=== PATIENT | female | born 1940 | race Caucasian/White ===

== ENCOUNTER 2019-06-23 22:16 | Inpatient (IN) | payer MEDICARE, MEDICAID ==
[2019-06-24] MEDS ORDERED: Morphine INJ* 2 MG/ML 1 ML SYRINGE (TWO MG - NEW SYRINGE VERSION) IV PRN ×2 (02:01→14:00)
[2019-06-24] MEDS ORDERED: hydrALAZINE IV* 20 MG/ML VIAL IV SLOW PU PRN (02:19)
[2019-06-24] MEDS: NS 0.9% 1000 ML** 1,000 ML IV SCH ×2 (02:28→14:56)
--- NOTE | 2019-06-24 03:59 | HP ---
HISTORY AND PHYSICAL: DATE OF ADMISSION: 06/24/19 CHIEF COMPLAINT: Fall with right hip pain. HISTORY OF PRESENT ILLNESS: This is a 79-year-old female with no past medical history other than some COPD, but currently not on any medication, was sent from [facility] after she was noted to have a right hip fracture. The patient was in her usual state of health up until 06/23/19 evening when she slipped on the linoleum floor in her kitchen, landing on her right hip with an instant pain. She was unable to stand up, so the grandson Rafael lifted her and put her in the couch, and later, he was able to bring her in the car and drive her to the [facility]. The patient was in severe pain ever since the fall. She denied any head trauma or any loss of consciousness, any dizziness prior to the fall, any chest pain, shortness of breath, abdominal pain, nausea, vomiting, or diarrhea. Her main complaint was the pain in the right hip. PAST MEDICAL HISTORY: She does have a history of COPD, but currently not on any medication. According to the MIKE Cotto at [facility], the patient has had chronic leukocytosis with her WBC always being in the 16,000 to 18,000 range in all her previous blood work at [facility]. PAST SURGICAL HISTORY: She has a history of exploratory laparotomy, unsure as to why it was done. She has also had total abdominal hysterectomy with bilateral salpingo-oophorectomy. HOME MEDICATIONS: Currently, does not take any medications. Was given some Aleve and Tylenol today after the fall. ALLERGIES: The patient is documented to be allergic to MERCURY, PENICILLIN, and SULFA ANTIBIOTICS which gives rash. FAMILY HISTORY: Given her age of 79, it is noncontributory. SOCIAL HISTORY: She quit smoking 20 years ago. Prior to that, used to smoke 1 to 2 cigarettes a day for 40 years. Denies any alcohol or drug use. Used to live independently, but recently moved in a few years ago at her grand kid's place. She has otherwise already signed a DNR and states that her family would be the surrogate decision maker. When asked to specify a name, she states her grandson Rafael would be able to make any decisions on her behalf. PHYSICAL EXAMINATION GENERAL: The patient is awake, alert, and oriented x3, did not appear to be in any acute respiratory distress. VITAL SIGNS: Temperature 98.9, BP 167/79, heart rate 82, respiration rate 16, saturating 96% on room air. HEAD AND NECK: Atraumatic, normocephalic. Extraocular movement intact. Oral mucosa was dry. Neck: Supple. No jugular venous distention. LUNGS: Clear to auscultation bilaterally. No wheezing, rhonchi, or rales. HEART: S1, S2. Regular rate and rhythm. ABDOMEN: Soft, nontender, nondistended. EXTREMITIES: The patient does have a shortened right lower extremity without any edema. DIAGNOSTIC STUDIES/LAB DATA: CBC shows elevated white count as mentioned at 18 ,000; hemoglobin shows hemoglobin of 11.8, minimally decreased; platelet count was noted to be 449. LFTs within normal limits. INR was noted to be 1.12. PTT was noted to be 39.2. Basic metabolic panel unremarkable. Random glucose was noted to be minimally elevated at 116. Hip images showed right hip fracture, documented as a subcapital fracture with elevation of the shaft with respect to femoral head, no subluxation. Left hip was showing no fracture. A 2-view x-ray was read as no acute disease. EKG showed sinus rhythm with voltage criteria for LVH, but this could be just because of the patient's body habitus being very skinny, no other ST elevations were noted. IMPRESSION: 1. This is a 79-year-old female with no significant past medical history except for some chronic leukocytosis, came in after sustaining a fall, noted to have right hip fracture. Ortho to be consulted. We will keep the patient n.p.o. for possible surgery. The patient otherwise does not have any risk factors for preop clearance such as any previous myocardial infarctions, stroke , high blood pressure, or diabetes, although the patient does have acutely elevated blood pressure. 2. Elevated blood pressure. Unclear if this is secondary to pain. We will start the patient on analgesics and also p.r.n. hydralazine and oral amlodipine to control the blood pressure. 3. DVT prophylaxis: To be started once the patient is evaluated for surgery. 4. Code status: The patient is a DNR and suggests her grandson Rafael being the healthcare proxy. [id number]/[facility] #: [id number] [facility]
[2019-06-24 07:14] LABS: ABS Lymphocytes 1.5 10^3/ul (1.0-4.8); ABS Monocytes 0.9 10^3/ul (0-0.8); ABS Neutrophils 8.7 10^3/ul (1.5-7.7); Eosinophil % 0.4 %; Hematocrit 30 % (35-47); Hemoglobin 10.1 g/dL (12.0-16.0); Lymphocyte % 13.4 %; Mean Corpuscular HGB Conc 34 g/dL (31-36); Mean Corpuscular Hemoglobin 29 pg (27-31); Mean Corpuscular Volume 87 fL (80-97); Mean Platelet Volume 7.9 fL (7.4-10.4); Platelet Count 357 10^3/uL (150-450); Red Blood Count 3.45 10^6 /uL (3.70-4.87); Red Cell Distribution Width 15 % (10-15); White Blood Count 11.2 10^3/uL (3.5-10.8)
[2019-06-24 07:17] LABS: BUN/Creatinine Ratio 20.3 (8-20); Calcium 8.6 mg/dL (8.6-10.3); EGFR African American 108.6 (>60); EGFR Non-African American 89.7 (>60); Potassium 3.4 mmol/L (3.5-5.0)
[2019-06-24 07:18] LABS: Activated Partial Thrombo Time 53.4 seconds (26.0-38.0); INR 1.28 (0.82-1.09)
[2019-06-24] MEDS ORDERED: Potassium Chlor TAB* 20 MEQ TAB.ER PO ONE (08:21)
--- NOTE | 2019-06-24 08:38 | PN ---
Progress Note - Progress Note Date of Service: 06/24/19 SOAP: Subjective: 79 yo female, h/o COPD asnd CLL, fell at home last night. Lives with her grandchildren. Initially brought to [place], transferred here for definitive management. Reports her hip hurts, but the pain medications have helped. Other than the right hip, no other complaints. Objective: Elderly female, sleeping in bed. Easily arousable. VSS: afebrile. HR, BPs good CV: S1/S2 Lungs: clear Right LE: shortened, but not particularly externally rotated. Being propped by pillows though. Motion not tested. Good sensation over FDWS and dorum foot. Can easily wiggle toes, slightly move ankle into plantar and dosriflexion X-rays: show a displaced right femoral neck fx Assessment: Displaced right femoral neck fx Plan: D/w patient a right hemiarthroplastty. Risks of surgery such as bleeding , considering her increased PT/INR, infection, scar formation, leg length discrepancy, instability, continued pain, DVT/PE and hardware failure, she wishes to proceed. Added on for a right hip hemiarthroplasty later this AM.
[2019-06-24] MEDS ORDERED: amLODIPine TAB* 5 MG PO SCH (09:00)
--- NOTE | 2019-06-24 09:39 | PN ---
Subjective Date of Service: 06/24/19 Interval History: Patient c/o right hip pain 10/10 at time of evaluation and is quite calm during history taking. She states when she receives morphine it does help. She explains she has felt cold but denies chills and fevers. Denies chest pain, difficulty breathing, abd pain, nausea. Objective Active Medications: Amlodipine Besylate (Norvasc Tab*) 5 mg PO DAILY [facility] Last Admin: 06/24/19 08:29 Dose: Not Given Hydralazine HCl (Apresoline Iv*) 5 mg IV SLOW PU Q6H PRN PRN Reason: Systolic Bp Greater Than:160 Sodium Chloride (Ns 0.9% 1000 Ml) 1,000 mls @ 75 mls/hr IV PER RATE [facility] Last Admin: 06/24/19 02:28 Dose: 75 mls/hr Morphine Sulfate (Morphine Inj (Syringe))*) 2 mg IV Q4H PRN PRN Reason: PAIN - MILD Last Admin: 06/24/19 02:37 Dose: 2 mg Vital Signs - 8 hr 06/24/19 06/24/19 06/24/19 02:37 03:38 03:47 Temperature 98.7 F Pulse Rate 76 Respiratory 16 16 16 Rate Blood Pressure 149/75 (mmHg) O2 Sat by Pulse 95 Oximetry 06/24/19 06/24/19 07:28 08:00 Temperature 99.2 F Pulse Rate 92 Respiratory 16 16 Rate Blood Pressure 145/68 (mmHg) O2 Sat by Pulse 94 Oximetry Oxygen Devices in Use Now: None Appearance: Thin, elderly white female, laying in bed, appearing comfortable and in NAD Eyes: No Scleral Icterus, - - PERRL Ears/Nose/Mouth/Throat: Mucous Membranes Moist Neck: - - neck supple Respiratory: Symmetrical Chest Expansion and Respiratory Effort, Clear to Auscultation Cardiovascular: NL Sounds; No Murmurs; No JVD, RRR Abdominal: - - abd soft, nontender, nondistended Extremities: No Edema, No Clubbing, Cyanosis, - - no calf tenderness Skin: No Rash or Ulcers Neurological: Alert and Oriented x 3, - - sensation grossly intact and equal in bilateral LEs; able to flex/extend all toes and bilaterally dorsiflex/ plantarflex Result Diagrams: 06/24/19 06:21 06/24/19 06:21 Assess/Plan/Problems-Billing Assessment: 79 yo white female with PMHx COPD not on therapy at home presents to the [facility] ED right right hip pain s/p mechanical fall, [place] [facility] found to have right hip fx. - Patient Problems (1) Hip fracture, right Current Visit: Yes Status: Acute Code(s): S72.001A - FRACTURE OF UNSP PART OF NECK OF RIGHT FEMUR, INIT SNOMED Code(s): 645573078 Comment: -displaced right femoral neck fx demonstrated on x-rays at [place] -Dr. Mccullough performed right hemiarthroplasty today. Appreciate ortho consult -continue pain mgmt, bowel regimen (2) Hypertension Current Visit: Yes Status: Acute Code(s): I10 - ESSENTIAL (PRIMARY) HYPERTENSION SNOMED Code(s): 67162347 Comment: -pt does not have pmhx HTN -possibly related to pain as it was present in ED and PACU postoperatively -did not receive amlodipine prior to surgery, will change to lisinopril and continue to monitor -continue prn hydralazine for SBP>180 (3) Hypokalemia Current Visit: Yes Status: Acute Code(s): E87.6 - HYPOKALEMIA SNOMED Code( s): 75294080 Comment: -likely 2/2 IVF due to NPO status for surgery -replacing and will repeat BMP (4) COPD (chronic obstructive pulmonary disease) Current Visit: Yes Status: Acute Code(s): J44.9 - CHRONIC OBSTRUCTIVE PULMONARY DISEASE, UNSPECIFIED SNOMED Code(s): 37080121 Comment: -no home meds -prn albuterol ordered (5) Full code status Current Visit: Yes Status: Acute Code(s): Z78.9 - OTHER SPECIFIED HEALTH STATUS SNOMED Code(s): 775275996 (6) DVT prophylaxis Current Visit: Yes Status: Acute Code(s): Z29.9 - ENCOUNTER FOR PROPHYLACTIC MEASURES, UNSPECIFIED SNOMED Code(s): 516234177 Comment: -lovenox per ortho
[2019-06-24] MEDS ORDERED: Albuterol HFA INHALER* 8 gm MDI INH PRN (09:40)
[2019-06-24] MEDS ORDERED: Senna TAB 8.6 mg* TAB PO PRN (09:41)
[2019-06-24] MEDS ORDERED: ceFAZolin 2 GM in NS PREMIX(*) 2 GM/100 ML BAG IVPB ONE (09:47)
[2019-06-24] MEDS ORDERED: Ondansetron INJ* 2 MG/ML VIAL ONE (10:48)
[2019-06-24] MEDS ORDERED: Propofol* 10 MG/ML 20 ML BTL ONE (10:48)
[2019-06-24] MEDS ORDERED: Lidocaine 2% PF * 5 ML VIAL ONE (10:48)
[2019-06-24] MEDS ORDERED: Dexamethasone IV* 4 MG/ML 1 ML (4 MG) ONE (10:48)
[2019-06-24] MEDS ORDERED: KETAMINE HCL* 50 MG/ML 10 ML VIAL ONE (10:49)
[2019-06-24] MEDS ORDERED: Cisatracurium* 2 MG/ML MDV 5 ML ONE (10:49)
[2019-06-24] MEDS ORDERED: Midazolam* 1 MG/ML 5 ML VIAL (5 MG) ONE (10:49)
[2019-06-24] MEDS ORDERED: fentaNYL* 50 MCG/ML 2 ML VIAL (100 MCG VIAL) ONE (10:49)
[2019-06-24] MEDS ORDERED: ROPIVACAINE 5 MG/ML 30 ML BTL (0.5%) ONE (11:09)
[2019-06-24] MEDS ORDERED: Bupivacaine 0.5%* 50 ML MDV VIAL ONE (11:32)
[2019-06-24] MEDS ORDERED: Lidocaine 1% w EPI 1:200,000* SDV 30 ML VIAL ONE (11:32)
[2019-06-24] MEDS ORDERED: Phenylephrine 40 MCG/ML SYRINGE ONE (12:01)
[2019-06-24] MEDS ORDERED: Ondansetron INJ* 2 MG/ML VIAL IV PRN (13:35)
[2019-06-24] MEDS: Polyethylene Glycol 3350* 17 GM PACKET PO SCH (14:57)
[2019-06-24] MEDS: Acetaminophen TAB* 325 MG PO PRN ×2 (14:58→21:11)
[2019-06-24] MEDS: Lisinopril TAB* 5 MG PO SCH (18:06)
[2019-06-24] MEDS: ceFAZolin 1 GM in Dextrose (*) 1 GM/50 ML BAG IVPB SCH (18:07)
[2019-06-24] MEDS: Docusate CAP* 100 MG PO SCH (21:08)
--- NOTE | 2019-06-24 21:56 | OP ---
OPERATIVE REPORT: DATE OF OPERATION: 06/24/19 DATE OF : 42 SURGEON: Xander Mccullough MD FLUE CLEANER: MIKE Abel ANESTHESIA: General endotracheal. PRE-OP DIAGNOSIS: Displaced right femoral neck fracture. POST-OP DIAGNOSIS: Displaced right femoral neck fracture. OPERATIVE PROCEDURE: Right hip hemiarthroplasty. INDICATIONS: Ms. Denson is a 79-year-old female who had fallen at home last night. She initially was brought to [place] and then transferred here in the early a.m. hours. She has a history of CLL and COPD, but otherwise had been declared healthy for surgery. I discussed with her that a right hip hemiarthroplasty should work well, so she could put weight on this right away and not have to convalesce while a fracture tries to heal. Risks of surgery such as infection, scar formation, stiffness, DVT, leg-length discrepancy, instability, hardware failure and continued pain were some of the risks discussed. She had wished to proceed. ESTIMATED BLOOD LOSS: 50 cc. COMPLICATIONS: None. HARDWARE: Forrest #6 M/L taper, reduced neck with standard offset, -3.5 mm, 28 mm femoral head, 44 mm bipolar head. DESCRIPTION OF PROCEDURE: The patient was brought to the OR and general endotracheal anesthesia was established. She was then rolled on to her left lateral decubitus position and an axillary roll was placed. Pegboard had been placed and the pegs were used to make sure she was safely secured to the table. Right hip area was prepped and then draped. Skin over the incisional area was infiltrated using a 50:50 mixture of 0.5% Marcaine mixed with 1% lidocaine with epinephrine. Incision was made, centered over the greater trochanter, extending distally for about 6 to 8 cm and proximally in a gentle curve for about 4 to 5 cm. It had been made so that when the hip was flexed up, incision would be in a straight line. Incision was carried down through the skin and thin subcutaneous tissues. Small bleeders encountered were ligated using electrocautery. Fascia was exposed and sharply incised. Short external rotators and abductors were immediately evident. Hohmann was placed under the abductors and nice exposure of the piriformis and back side of the hip was obtained. Electrocautery was used to take down the short external rotators and piriformis as well as open the capsule. Fracture was immediately evident. Guide was placed over the femur and the femoral neck was marked and then a cleanup cut was taken. Femur was then shifted anteriorly and fracture of the head was clearly evident. Corkscrew was placed and then used to leaver out the femoral head and the acetabulum was swept for additional loose bodies. Pulse lavage was also extensively used. Head slid perfectly through the 44 sizer and she was trialed with a 43, 44 and 45 size heads and I like the 44 the best. This corresponded well to pre-operative templating. Attention was turned to the proximal femur. Box osteotome was used to open the femoral canal and the canal finder was easily passed. 5 brokayla was seated and she was then trialed with a standard neck as well as with a minus head. She seemed a bit long as she was very tight in extension. Leg length lock, she seemed just about where she needed to be. When the head was removed, the 5 was however just a little bit loose. She was then trialed with a 6 and again I had the same concerns about her leg length. The 6, however, did seem to fit better, but sat a little bit proud. 5 broach was then used to countersink a little bit and then the 6 could be countersunk just a little bit more. An additional [address]. She was again trialed and at this time, the broach did not loosen and a 6 reduced neck standard offset stem was called for. This was then impacted into place. -3.5 mm 28 mm head was then impacted in and the bipolar cup assembly was assembled on the top side of the head. She was easily reduced and had excellent stability. I was still a little concerned about the tightness she had with extension, but considering the center of rotation it appeared to correspond well to the tip of the greater trochanter and that we are unable to place any shorter implants, this should work well for her. Hip was copiously pulse lavaged. 20 cc of local was injected on the superiorly and anteriorly about the hip as well. Posterior capsule and posterior short external rotators and piriformis were all repaired together to the posterior aspect of the greater trochanter. Hip was again pulse lavaged and fascia was repaired using interrupted #1 Vicryl sutures. Subcutaneous tissues were reapproximated with 2- 0 Vicryl. Skin was closed using franky. Sterile dressing was applied in the OR. The patient was rolled on to the hospital and extubated in the OR. She was then stable on transfer to the recovery room. [id number]/[facility] #: [id number] WILDA
[2019-06-25] MEDS: HYDROcodone/ACETAMIN 5-325 MG* 1 TAB PO PRN ×6 (00:16→21:42)
[2019-06-25] MEDS: ceFAZolin 1 GM in Dextrose (*) 1 GM/50 ML BAG IVPB SCH ×2 (01:08→10:21)
[2019-06-25 06:14] LABS: ABS Monocytes 1.2 10^3/ul (0-0.8); ABS Neutrophils 8.8 10^3/ul (1.5-7.7); Eosinophil % 0.3 %; Hematocrit 29 % (35-47); Hemoglobin 9.8 g/dL (12.0-16.0); Lymphocyte % 16.6 %; Mean Corpuscular HGB Conc 34 g/dL (31-36); Mean Corpuscular Hemoglobin 30 pg (27-31); Mean Corpuscular Volume 88 fL (80-97); Mean Platelet Volume 7.8 fL (7.4-10.4); Platelet Count 420 10^3/uL (150-450); Red Blood Count 3.31 10^6 /uL (3.70-4.87); Red Cell Distribution Width 15 % (10-15); White Blood Count 12.2 10^3/uL (3.5-10.8)
[2019-06-25 06:30] LABS: BUN/Creatinine Ratio 14.1 (8-20); Calcium 8.9 mg/dL (8.6-10.3); EGFR African American 86.4 (>60); EGFR Non-African American 71.4 (>60); Potassium 4.1 mmol/L (3.5-5.0)
[2019-06-25] MEDS: Docusate CAP* 100 MG PO SCH ×2 (08:14→21:42)
[2019-06-25] MEDS: Lisinopril TAB* 5 MG PO SCH (08:14)
[2019-06-25] MEDS: Polyethylene Glycol 3350* 17 GM PACKET PO SCH (08:15)
[2019-06-25] MEDS: Apixaban* 2.5 MG TAB PO SCH ×2 (08:15→21:42)
--- NOTE | 2019-06-25 08:22 | PN ---
Progress Note - Progress Note Date of Service: 06/25/19 SOAP: Subjective: OOB to chair, moderate right hip pain when up, controlled with current pain meds Objective: Vital Signs Temp Pulse Resp BP Pulse Ox 98.3 F 72 18 119/67 94 06/25/19 07:28 06/25/19 07:28 06/25/19 08:15 06/25/19 07:28 06/25/19 07:28 Laboratory Last Values WBC 12.2 10^3/uL (3.5-10.8) H 06/25/19 05:52 RBC 3.31 10^6 /uL (3.70-4.87) L 06/25/19 05:52 Hgb 9.8 g/dL (12.0-16.0) L 06/25/19 05:52 Hct 29 % (35-47) L 06/25/19 05:52 MCV 88 fL (80-97) 06/25/19 05:52 MCH 30 pg (27-31) 06/25/19 05:52 MCHC 34 g/dL (31-36) 06/25/19 05:52 RDW 15 % (10-15) 06/25/19 05:52 Plt Count 420 10^3/uL (150-450) 06/25/19 05:52 MPV 7.8 fL (7.4-10.4) 06/25/19 05:52 Neut % (Auto) 72.6 % 06/25/19 05:52 Lymph % (Auto) 16.6 % 06/25/19 05:52 Dundy % (Auto) 10.2 % 06/25/19 05:52 Eos % (Auto) 0.3 % 06/25/19 05:52 Baso % (Auto) 0.3 % 06/25/19 05:52 Absolute Neuts (auto) 8.8 10^3/ul (1.5-7.7) H 06/25/19 05:52 Absolute Lymphs (auto) 2.0 10^3/ul (1.0-4.8) 06/25/19 05:52 Absolute Monos (auto) 1.2 10^3/ul (0-0.8) H 06/25/19 05:52 Absolute Eos (auto) 0.0 10^3/ul (0-0.6) 06/25/19 05:52 Absolute Basos (auto) 0.0 10^3/ul (0-0.2) 06/25/19 05:52 Absolute Nucleated RBC 0.0 10^3/ul 06/25/19 05:52 Nucleated RBC % 0.0 06/25/19 05:52 INR (Anticoag Therapy) 1.28 (0.82-1.09) H 06/24/19 06:21 APTT 53.4 seconds (26.0-38.0) H 06/24/19 06:21 Sodium 135 mmol/L (135-145) 06/25/19 05:52 Potassium 4.1 mmol/L (3.5-5.0) 06/25/19 05:52 Chloride 105 mmol/L (101-111) 06/25/19 05:52 Carbon Dioxide 25 mmol/L (22-32) 06/25/19 05:52 Anion Gap 5 mmol/L (2-11) 06/25/19 05:52 BUN 11 mg/dL (6-24) 06/25/19 05:52 Creatinine 0.78 mg/dL (0.51-0.95) 06/25/19 05:52 Est GFR ( Amer) 86.4 (>60) 06/25/19 05:52 Est GFR (Non-Af Amer) 71.4 (>60) 06/25/19 05:52 BUN/Creatinine Ratio 14.1 (8-20) 06/25/19 05:52 Glucose 91 mg/dL (70-100) 06/25/19 05:52 Calcium 8.9 mg/dL (8.6-10.3) 06/25/19 05:52 Blood Type A Positive 06/24/19 06:19 Antibody Screen Negative 06/24/19 06:19 dressing c/d/i PE: able to DF/PF, 2+ DP pulse, intact sensation Assessment: s/p right hip magui; POD #1 Plan: 1) PT/OT- WBAT 2) Eliquis for DVT prophylaxis 3) Ancef for 24 hours post-op 4) May need rehab placement, will see how she progresses with PT
--- NOTE | 2019-06-25 17:37 | PN ---
Subjective Date of Service: 06/25/19 Interval History: Ms. Denson c/o R hip pain rated at 6/10. She has been up ambulating with walker, and notes that she did well, but it was painful. She had a BM 2 days ago. She denies new cough, CP, SOB, fever/chills, n/v/d. She has no other complaints today. Objective Active Medications: Acetaminophen (Tylenol Tab*) 650 mg PO Q4H PRN PRN Reason: PAIN - MILD Last Admin: 06/24/19 21:11 Dose: 650 mg Hydrocodone Bitart/Acetaminophen ([place] 5-325 Tab*) 2 tab PO Q4H PRN PRN Reason: PAIN - MODERATE Last Admin: 06/25/19 12:56 Dose: 2 tab Albuterol (Ventolin Hfa Inhaler*) 1 puff INH Q4H PRN PRN Reason: SOB/WHEEZING Apixaban (Eliquis*) 2.5 mg PO BID [facility] Last Admin: 06/25/19 08:15 Dose: 2.5 mg Docusate Sodium (Colace Cap*) 100 mg PO BID [facility] Last Admin: 06/25/19 08:14 Dose: 100 mg Hydralazine HCl (Apresoline Iv*) 5 mg IV SLOW PU Q6H PRN PRN Reason: Systolic Bp Greater Than:160 Last Admin: 06/24/19 15:02 Dose: 5 mg Sodium Chloride (Ns 0.9% 1000 Ml) 1,000 mls @ 75 mls/hr IV PER RATE [facility] Last Admin: 06/24/19 14:56 Dose: 75 mls/hr Lisinopril (Prinivil Tab*) 2.5 mg PO DAILY [facility] Last Admin: 06/25/19 08:14 Dose: 2.5 mg Morphine Sulfate (Morphine Inj (Syringe))*) 2 mg IV Q2H PRN PRN Reason: PAIN - SEVERE Ondansetron HCl (Zofran Inj*) 4 mg IV Q6H PRN PRN Reason: NAUSEA/VOMITING Polyethylene Glycol/Electrolytes (Miralax*) 17 gm PO DAILY [facility] Last Admin: 06/25/19 08:15 Dose: Not Given Senna (Senokot 8.6 Mg Tab*) 1 tab PO DAILY PRN PRN Reason: CONSTIPATION Vital Signs: Temp Pulse Resp BP Pulse Ox 98.3 F 82 16 107/54 94 06/25/19 12:00 06/25/19 12:00 06/25/19 17:27 06/25/19 12:00 06/25/19 16:00 Oxygen Devices in Use Now: None Appearance: Ms. Denson is an older white female who is sitting in chair with LE at floor. She appears mildly uncomfortable, but in no acute distress. Eyes: No Scleral Icterus, PERRLA Ears/Nose/Mouth/Throat: NL Teeth, Lips, Gums, Clear Oropharnyx, Mucous Membranes Moist Neck: NL Appearance and Movements; NL JVP, Trachea Midline Respiratory: Symmetrical Chest Expansion and Respiratory Effort, - - Decreased breath sounds throughout Cardiovascular: NL Sounds; No Murmurs; No JVD, RRR, No Edema Abdominal: NL Sounds; No Tenderness; No Distention, No Hepatosplenomegaly Extremities: No Edema, No Clubbing, Cyanosis Neurological: Alert and Oriented x 3 Result Diagrams: 06/25/19 05:52 06/25/19 05:52 Assess/Plan/Problems-Billing Assessment: 79 yo white female with PMHx COPD not on therapy at home presents to the [facility] ED right right hip pain s/p mechanical fall, then [place] [facility] found to have right hip fx. - Patient Problems (1) Hip fracture, right Comment: -displaced right femoral neck fx demonstrated on x-rays at [place] -Dr. Mccullough performed right hemiarthroplasty -appreciate ortho consult -continue pain mgmt, bowel regimen -PT/OT (2) Postoperative anemia Comment: -pt with anemia, likely due to post-op status -continue to monitor h/h (3) Hypertension Comment: -pt does not have pmhx HTN -possibly related to pain as it was present in ED and PACU postoperatively -did not receive amlodipine prior to surgery, will change to lisinopril and continue to monitor -BP under good control with lisinopril (4) Hypokalemia Comment: -likely 2/2 IVF due to NPO status for surgery -replaced and resolved -continue to monitor (5) COPD (chronic obstructive pulmonary disease) Comment: -no home meds -prn albuterol ordered (6) DVT prophylaxis Comment: -lovenox per ortho (7) Full code status Status and Disposition: Inpatient. Discharge when stable, home vs. [facility] to be determined.
[2019-06-25 22:22] LABS: Urine Appearance Cloudy; Urine Bacteria Absent (Absent); Urine Bilirubin Negative (Negative); Urine Blood Negative (Negative); Urine Color Yellow; Urine Glucose Negative (Negative); Urine Ketones Negative (Negative); Urine Nitrite Negative (Negative); Urine Protein Negative (Negative); Urine Red Blood Cell Absent (Absent); Urine Specific Gravity 1.021 (1.010-1.030); Urine Squamous Epithelial Cell Present (Absent); Urine Urobilinogen Negative (Negative); Urine White Blood Cell 1+(6-10/hpf) (Absent)
[2019-06-26] MEDS: HYDROcodone/ACETAMIN 5-325 MG* 1 TAB PO PRN ×5 (02:39→22:04)
[2019-06-26 06:47] LABS: ABS Basophils 0.1 10^3/ul (0-0.2); ABS Eosinophils 0.3 10^3/ul (0-0.6); ABS Lymphocytes 1.6 10^3/ul (1.0-4.8); ABS Neutrophils 8.7 10^3/ul (1.5-7.7); Eosinophil % 2.2 %; Hematocrit 31 % (35-47); Hemoglobin 10.2 g/dL (12.0-16.0); Mean Corpuscular HGB Conc 33 g/dL (31-36); Mean Corpuscular Hemoglobin 29 pg (27-31); Mean Corpuscular Volume 88 fL (80-97); Mean Platelet Volume 7.3 fL (7.4-10.4); Platelet Count 435 10^3/uL (150-450); Red Blood Count 3.47 10^6 /uL (3.70-4.87); Red Cell Distribution Width 15 % (10-15); White Blood Count 11.6 10^3/uL (3.5-10.8)
[2019-06-26 07:10] LABS: BUN/Creatinine Ratio 18.4 (8-20); EGFR African American 76.2 (>60); Potassium 4.5 mmol/L (3.5-5.0)
[2019-06-26] MEDS: Lisinopril TAB* 5 MG PO SCH (08:03)
[2019-06-26] MEDS: Apixaban* 2.5 MG TAB PO SCH ×2 (08:03→20:23)
[2019-06-26] MEDS: Docusate CAP* 100 MG PO SCH ×2 (08:07→20:23)
[2019-06-26] MEDS: Polyethylene Glycol 3350* 17 GM PACKET PO SCH (08:07)
[2019-06-26] MEDS ORDERED: Magnesium Hydroxide LIQ* 30 ML UDC PO PRN (09:45)
--- NOTE | 2019-06-26 10:40 | PN ---
Progress Note - Progress Note Date of Service: 06/26/19 SOAP: Subjective: []Pt seen at bedside. She feels well, hip pain is well controlled. She ambulate to the restroom yesterday with PT. Denies CP, SOB, dizziness, nausea. Objective: []Gen: NAD RLE: Right hip dressing changed, incision CDI no erythema and no discharge. Thigh is soft. DF/PF intact, DP2+, sensation intact to light touch distlaly calvrs supple and nontender Assessment: s/p right hip magui; POD #2 Plan: 1) PT/OT- WBAT. Posterior hip precautions 2) Eliquis 2.5 mg po BID x 30 days post op for DVT prophylaxis 3) Ancef for 24 hours post-op 4) May need rehab placement, will see how she progresses with PT Vital Signs Temp 98.4 F 06/26/19 07:42 Pulse 87 06/26/19 08:00 Resp 18 06/26/19 08:03 BP 142/79 06/26/19 07:42 Pulse Ox 94 06/26/19 08:00 Intake & Output 06/25/19 06/26/19 06/26/19 18:59 06:59 18:59 Intake Total 540 0 360 Output Total 300 505 100 Balance 240 -505 260 Intake: Oral 540 0 360 Output: Urine 300 505 100 Other: Estimated Void Large # Voids 1 Laboratory Last Values WBC 11.6 10^3/uL (3.5-10.8) H 06/26/19 06:41 RBC 3.47 10^6 /uL (3.70-4.87) L 06/26/19 06:41 Hgb 10.2 g/dL (12.0-16.0) L 06/26/19 06:41 Hct 31 % (35-47) L 06/26/19 06:41 MCV 88 fL (80-97) 06/26/19 06:41 MCH 29 pg (27-31) 06/26/19 06:41 MCHC 33 g/dL (31-36) 06/26/19 06:41 RDW 15 % (10-15) 06/26/19 06:41 Plt Count 435 10^3/uL (150-450) 06/26/19 06:41 MPV 7.3 fL (7.4-10.4) L 06/26/19 06:41 Neut % (Auto) 74.7 % 06/26/19 06:41 Lymph % (Auto) 14.0 % 06/26/19 06:41 Ware % (Auto) 8.4 % 06/26/19 06:41 Eos % (Auto) 2.2 % 06/26/19 06:41 Baso % (Auto) 0.7 % 06/26/19 06:41 Absolute Neuts (auto) 8.7 10^3/ul (1.5-7.7) H 06/26/19 06:41 Absolute Lymphs (auto) 1.6 10^3/ul (1.0-4.8) 06/26/19 06:41 Absolute Monos (auto) 1.0 10^3/ul (0-0.8) H 06/26/19 06:41 Absolute Eos (auto) 0.3 10^3/ul (0-0.6) 06/26/19 06:41 Absolute Basos (auto) 0.1 10^3/ul (0-0.2) 06/26/19 06:41 Absolute Nucleated RBC 0.0 10^3/ul 06/26/19 06:41 Nucleated RBC % 0.0 06/26/19 06:41 INR (Anticoag Therapy) 1.28 (0.82-1.09) H 06/24/19 06:21 APTT 53.4 seconds (26.0-38.0) H 06/24/19 06:21 Sodium 137 mmol/L (135-145) 06/26/19 06:41 Potassium 4.5 mmol/L (3.5-5.0) 06/26/19 06:41 Chloride 106 mmol/L (101-111) 06/26/19 06:41 Carbon Dioxide 27 mmol/L (22-32) 06/26/19 06:41 Anion Gap 4 mmol/L (2-11) 06/26/19 06:41 BUN 16 mg/dL (6-24) 06/26/19 06:41 Creatinine 0.87 mg/dL (0.51-0.95) 06/26/19 06:41 Est GFR ( Amer) 76.2 (>60) 06/26/19 06:41 Est GFR (Non-Af Amer) 63.0 (>60) 06/26/19 06:41 BUN/Creatinine Ratio 18.4 (8-20) 06/26/19 06:41 Glucose 80 mg/dL (70-100) 06/26/19 06:41 Calcium 9.0 mg/dL (8.6-10.3) 06/26/19 06:41 Urine Color Yellow 06/25/19 21:41 Urine Appearance Cloudy 06/25/19 21:41 Urine pH 5.0 (5-9) 06/25/19 21:41 Ur Specific [place] 1.021 (1.010-1.030) 06/25/19 21:41 Urine Protein Negative (Negative) 06/25/19 21:41 Urine Ketones Negative (Negative) 06/25/19 21:41 Urine Blood Negative (Negative) 06/25/19 21:41 Urine Nitrate Negative (Negative) 06/25/19 21:41 Urine Bilirubin Negative (Negative) 06/25/19 21:41 Urine Urobilinogen Negative (Negative) 06/25/19 21:41 Ur Leukocyte Esterase Trace (Negative) A 06/25/19 21:41 Urine WBC (Auto) 1+(6-10/hpf) (Absent) A 06/25/19 21:41 Urine RBC (Auto) Absent (Absent) 06/25/19 21:41 Ur Squamous Epith Cells Present (Absent) A 06/25/19 21:41 Urine Bacteria Absent (Absent) 06/25/19 21:41 Urine Glucose Negative (Negative) 06/25/19 21:41 Blood Type A Positive 06/24/19 06:19 Antibody Screen Negative 06/24/19 06:19
--- NOTE | 2019-06-26 17:24 | PN ---
Subjective Date of Service: 06/26/19 Interval History: Ms. Denson continues to have R hip pain that she rates at 6/10 currently. She notes it is worse with ambulation, and she has just returned from the bathroom recently. She reports last BM 06/23. She has no other complaints today. Objective Active Medications: Acetaminophen (Tylenol Tab*) 650 mg PO Q4H PRN PRN Reason: PAIN - MILD Last Admin: 06/24/19 21:11 Dose: 650 mg Hydrocodone Bitart/Acetaminophen ([place] 5-325 Tab*) 2 tab PO Q4H PRN PRN Reason: PAIN - MODERATE Last Admin: 06/26/19 12:01 Dose: 2 tab Albuterol (Ventolin Hfa Inhaler*) 1 puff INH Q4H PRN PRN Reason: SOB/WHEEZING Apixaban (Eliquis*) 2.5 mg PO BID [facility] Last Admin: 06/26/19 08:03 Dose: 2.5 mg Docusate Sodium (Colace Cap*) 100 mg PO BID [facility] Last Admin: 06/26/19 08:07 Dose: Not Given Hydralazine HCl (Apresoline Iv*) 5 mg IV SLOW PU Q6H PRN PRN Reason: Systolic Bp Greater Than:160 Last Admin: 06/24/19 15:02 Dose: 5 mg Sodium Chloride (Ns 0.9% 1000 Ml) 1,000 mls @ 75 mls/hr IV PER RATE [facility] Last Admin: 06/24/19 14:56 Dose: 75 mls/hr Lisinopril (Prinivil Tab*) 2.5 mg PO DAILY [facility] Last Admin: 06/26/19 08:03 Dose: 2.5 mg Magnesium Hydroxide (Milk Of Magnesia Liq*) 30 ml PO BID PRN PRN Reason: CONSTIPATION Morphine Sulfate (Morphine Inj (Syringe))*) 2 mg IV Q2H PRN PRN Reason: PAIN - SEVERE Ondansetron HCl (Zofran Inj*) 4 mg IV Q6H PRN PRN Reason: NAUSEA/VOMITING Polyethylene Glycol/Electrolytes (Miralax*) 17 gm PO DAILY [facility] Last Admin: 06/26/19 08:07 Dose: Not Given Senna (Senokot 8.6 Mg Tab*) 1 tab PO DAILY PRN PRN Reason: CONSTIPATION Vital Signs: Temp Pulse Resp BP Pulse Ox 98.0 F 95 18 131/74 99 06/26/19 15:20 06/26/19 15:20 06/26/19 15:20 06/26/19 15:20 06/26/19 16:00 Oxygen Devices in Use Now: None Appearance: Ms. Denson is an older white female who appears older than stated age; she is sitting up in chair with LE elevated. She appears to be in no acute distress, but is midly uncomfortable. Eyes: No Scleral Icterus, PERRLA Ears/Nose/Mouth/Throat: NL Teeth, Lips, Gums, Clear Oropharnyx, Mucous Membranes Moist Neck: NL Appearance and Movements; NL JVP, Trachea Midline Respiratory: Symmetrical Chest Expansion and Respiratory Effort, - - Scattered faint, intermittent wheezing; decreased air exchange Cardiovascular: NL Sounds; No Murmurs; No JVD, RRR, No Edema Abdominal: NL Sounds; No Tenderness; No Distention, No Hepatosplenomegaly Extremities: No Edema, No Clubbing, Cyanosis, - - R hip with CDI dressing in place; able to move all extremities Neurological: Alert and Oriented x 3, NL Sensation Result Diagrams: 06/26/19 06:41 06/26/19 06:41 Microbiology and Other Data: Microbiology 06/25/19 21:41 Urine Culture - Final Urine No Growth (<1,000 CFU/mL) Assess/Plan/Problems-Billing Assessment: 79 yo white female with PMHx COPD not on therapy at home presents to the [facility] ED right right hip pain s/p mechanical fall, then transferred to [facility] when found to have right hip fx. - Patient Problems (1) Hip fracture, right Comment: -displaced right femoral neck fx demonstrated on x-rays at [facility] -Dr. Mccullough performed right hemiarthroplasty 06/24 -appreciate ortho consult -continue pain mgmt, bowel regimen -PT/OT (2) Postoperative anemia Comment: -pt with anemia, likely due to post-op status -trending up -continue to monitor h/h (3) Hypertension Comment: -BP well controlled -no PMHx HTN -possibly related to pain as it was present in ED and PACU postoperatively -BP under good control with lisinopril (4) COPD (chronic obstructive pulmonary disease) Comment: -very mild wheezing on exam; does not appear to be in exacerbation -no home meds -prn albuterol ordered (5) DVT prophylaxis Comment: -Eliquis 2.5 PO BID per ortho (6) Full code status Status and Disposition: Inpatient. Discharge when stable, home vs. [facility] to be determined.
[2019-06-27] MEDS: HYDROcodone/ACETAMIN 5-325 MG* 1 TAB PO PRN (05:01)
[2019-06-27 06:16] LABS: ABS Basophils 0.1 10^3/ul (0-0.2); ABS Eosinophils 0.3 10^3/ul (0-0.6); ABS Lymphocytes 1.5 10^3/ul (1.0-4.8); ABS Monocytes 0.9 10^3/ul (0-0.8); ABS Neutrophils 8.8 10^3/ul (1.5-7.7); Eosinophil % 2.6 %; Hematocrit 31 % (35-47); Hemoglobin 10.3 g/dL (12.0-16.0); Lymphocyte % 12.6 %; Mean Corpuscular HGB Conc 33 g/dL (31-36); Mean Corpuscular Hemoglobin 29 pg (27-31); Mean Corpuscular Volume 88 fL (80-97); Mean Platelet Volume 7.9 fL (7.4-10.4); Platelet Count 463 10^3/uL (150-450); Red Blood Count 3.56 10^6 /uL (3.70-4.87); Red Cell Distribution Width 15 % (10-15); White Blood Count 11.6 10^3/uL (3.5-10.8)
[2019-06-27 06:39] LABS: BUN/Creatinine Ratio 21.6 (8-20); Calcium 9.1 mg/dL (8.6-10.3); EGFR African American 91.8 (>60); EGFR Non-African American 75.9 (>60); Potassium 4.5 mmol/L (3.5-5.0)
[2019-06-27 07:51] VITALS: BP 116/63
[2019-06-27] MEDS: Lisinopril TAB* 5 MG PO SCH (08:24)
[2019-06-27] MEDS: Docusate CAP* 100 MG PO SCH (08:25)
[2019-06-27] MEDS: Apixaban* 2.5 MG TAB PO SCH (08:25)
[2019-06-27] MEDS: Polyethylene Glycol 3350* 17 GM PACKET PO SCH (09:37)
--- NOTE | 2019-06-27 10:53 | DS ---
DATE OF ADMISSION: 06/24/2019. DATE OF DISCHARGE: 06/27/2019. PRIMARY CARE PHYSICIAN: None; please establish with [facility] prior to discharge. OTHER PROVIDER: Dr. Xander Mccullough. ATTENDING PHYSICIAN: Dr. Any Canada * (dictated by MIKE Raymond). PRIMARY DIAGNOSES: 1. Right femur fracture, status post right hemiarthroplasty. 2. Postoperative anemia. 3. Hypertension. 4. Hypokalemia. SECONDARY DIAGNOSES: 1. COPD, not on home medications. 2. History of chronic leukocytosis. CONSULTATIONS WHILE IN THE HOSPITAL: Orthopedic consultation: Plan: Discuss with patient a right hemiarthroplasty; risks of surgery such as bleeding, considering her increased PT/INR, infection, scar formation, leg length discrepancy, instability, continued pain, DVT/PE, and hardware failure, she wishes to proceed. Added on for a right hip hemiarthroplasty later this a.m. STUDIES WHILE IN THE HOSPITAL: Pelvis x-ray: Report and impression: Right hip bipolar hemiprosthesis in place with normal alignment in the AP projection. No periprosthetic fracture evident within limits of AP exam. Overlying soft tissue edema, subcutaneous emphysema, and cutaneous franky. HOME MEDICATIONS: None. DISCHARGE MEDICATIONS: 1. Acetaminophen 650 mg p.o. q.4 hours prn. 2. Albuterol HFA inhaler one puff inhalation q.4 hours prn. 3. Apixaban 2.5 mg p.o. b.i.d. times 30 days postop. 4. Docusate 100 mg p.o. b.i.d. prn. 5. Hydrocodone/acetaminophen 5/325 one to two tabs p.o. q.4 hours prn pain. 6. Lisinopril 2.5 mg p.o. daily. 7. Magnesium Hydroxide 30 ml p.o. b.i.d. prn. 8. Polyethylene Glycol 17 gm p.o. daily prn. 9. Senna one tab p.o. daily prn. HISTORY OF PRESENT ILLNESS/HOSPITAL COURSE: Ms. Denson is a 79-year-old female with a past medical history of COPD, not on medications who presented to [facility] on June 24 and was noted to have a right femur fracture, status post mechanical fall. For full and complete details, please see the history and physical dictated by Dr. Jarrod Choudhury. In short, the patient presented to [place] with these symptoms. She was transferred to [facility]. Orthopedics was consulted. The patient was offered a right hip hemiarthroplasty which she accepted. This was performed on 06/24/2019. Throughout her stay she worked with Physical Therapy who recommended subacute rehab. [facility] has accepted the patient for admission and she will be transferred to [facility] today. At admission, the patient was noted to be hypertensive. She does not have an outpatient diagnosis of hypertension. She was started on low dose Lisinopril 2.5 mg p.o. daily which has adequately controlled her blood pressure. She will be continued on this medication as an outpatient. The patient was noted to have mild hypokalemia during hospitalization. This was likely from IV fluids. This was repleted and her potassium was within normal limits throughout the rest of her stay. The patient was also noted to have some mild anemia throughout her stay. This was likely partially due to perioperative blood loss. The patient's hemoglobin and hematocrit are trending upward at discharge. Recommendations are to repeat a CBC and BMP in approximately one week to ensure that these continue to rise. Recommend anemia work-up if H and H remains low. The patient was also noted to have a mild leukocytosis throughout her stay. Reports from [place] state that the patient has chronic leukocytosis with white blood cells ranging from 16,000 to 18,000 in all previous blood work from [place]. She does not have a primary care provider, therefore she should have an appointment scheduled with [facility] at discharge. Recommendations are to have follow-up lab work addressed by her new primary care provider. At the time of discharge, the patient continues to have 7/10 pain in the right hip. She notes that pain has worsened when she is up and walking, and she recently returned from the bathroom causing an increase in pain. She denies dizziness, lightheadedness, loss of consciousness, shortness of breath. She denies cough, fever, chills, nausea, vomiting, diarrhea, abdominal pain, dysuria , frequency, urgency, retention. She has not had a bowel movement in approximately four days, but denies abdominal pain. REVIEW OF SYMPTOMS: A 14 point review of systems has been performed and all the pertinent positives and negatives are in the HPI. All other systems are negative. PHYSICAL EXAMINATION: General: Ms. Denson is a well-developed, well-nourished, thin, older, white woman who appears somewhat older than her stated age. She appears mildly uncomfortable, but is resting in a recliner chair with the lower extremities elevated. No acute distress. Vital Signs: Temperature 98.3 oral, heart rate 93, respiratory rate 16, oxygen saturation 96 percent on room air, blood pressure 116/63. HEENT: PERRL, EOMI, nonicteric sclerae. Hearing grossly intact. Oral mucous membranes are moist, there are no lesions. Pharynx is clear without exudates. Tongue is at midline. Palate elevated symmetrically. Cardiovascular: Regular rate and rhythm with S1, S2 present without murmurs, rubs, clicks, or gallops. There is no JVD. There is no peripheral edema. Radial and pedal pulses are palpable. Pulmonary: Symmetrical chest expansion without use of accessory muscles. Clear to auscultation bilaterally without rhonchi, wheezes, or rubs. Mildly diminished breath sounds throughout. No digital clubbing or cyanosis. Abdomen: Flat. Mildly distended. Soft, nontender to palpation. Musculoskeletal: Full range of motion in bilateral upper extremities and left lower extremity. Full active range of motion in right lower extremity, painful movement at the right hip. Neuro: The patient is awake. She is alert and oriented times three with cranial nerves grossly intact. Sensation intact distally. DISCHARGE PLAN: Ms. Dneson is stable for discharge to [facility]. MEDICATIONS: 1. Continue Lisinopril 2.5 mg p.o. daily for hypertension. 2. Eliquis 2.5 mg p.o. b.i.d. times 30 days postoperatively. 3. Continue pain regimen. 4. Continue bowel regimen, especially while on opiate pain medications. CONDITION ON DISCHARGE: Fair. DIET: Resume home diet. ACTIVITY: Weightbearing as tolerated, posterior hip precautions. EDUCATION: 1. Repeat CBC, BMP in five to seven days. 2. You do not have a primary care provider, please ensure that you have an appointment with [facility] within four to seven days of discharge from [facility]. 3. Follow-up with Orthopedics as scheduled. 4. Return to the ER or nearest hospital if you experience any worsening of symptoms, erythema, edema, drainage from right hip incision site, chest pain or discomfort, shortness of breath, dizziness, lightheadedness, loss of consciousness, high fevers, chills, night sweats or any other worrisome signs or symptoms. This is a summarized report of a complex medical history and hospital stay. For further details, please see the entire medical record. TIME SPENT: Approximately 35 minutes were spent on this discharge, greater than half of that time was spent [id number] with the patient discussing discharge plans and instructions. MIKE TERAN [id number]/CPS #: [id number] MTDMarisa
== END 2019-06-27 09:40 | DRG 470 ==
LOC: SSU 23:45
PROVIDERS: ADMIT Internal Medicine; ATTEND Internal Medicine
PROC: 0SRR01A Replacement of Right Hip Joint, Femoral Surface with Metal Synthetic Substitute, Uncemented, Open Approach (ICD-10-PCS; principal; 2019-06-24 11:30)
DX: S72.001A Fracture of unspecified part of neck of right femur, initial encounter for closed fracture (principal); Z66 Do not resuscitate; I10 Essential (primary) hypertension; E87.6 Hypokalemia; D64.9 Anemia, unspecified; W01.0XXA Fall on same level from slipping, tripping and stumbling without subsequent striking against object, initial encounter; J44.9 Chronic obstructive pulmonary disease, unspecified; D72.829 Elevated white blood cell count, unspecified; Z90.710 Acquired absence of both cervix and uterus; Z90.722 Acquired absence of ovaries, bilateral; Y92.000 Kitchen of unspecified non-institutional (private) residence as the place of occurrence of the external cause; Z88.0 Allergy status to penicillin; Z88.2 Allergy status to sulfonamides; Z91.048 Other nonmedicinal substance allergy status; Z87.891 Personal history of nicotine dependence
CPT/HCPCS: 36415; 72170; 80048; 81003; 81015; 85025; 85610; 85730; 86850; 86900; 86901; 87086; 88305; 88311; 93005; A9270-GY; C1776; G8978-GP-CK; G8979-GP-CI; G8987-GO-CK; G8988-GO-CI; J0360; J0690; J1100; J2001; J2250; J2270; J2405; J2704; J2795; J3010; J3490

== ENCOUNTER 2019-06-27 07:59 | Inpatient (IN) | payer MEDICARE, MEDICAID ==
[2019-06-27] MEDS ORDERED: Magnesium Hydroxide LIQ* 30 ML UDC PO PRN (11:44)
[2019-06-27] MEDS ORDERED: Polyethylene Glycol 3350* 17 GM PACKET PO PRN (11:55)
--- NOTE | 2019-06-27 12:36 | PMRUTEAM ---
PMRU: Team Meeting Current Status: Physical Therapy: Current Status Current Rolling Status Not attempted Current Supine <-> Sit Status Partial/Moderate Current Sit <-> Stand Status Partial/Moderate Current Bed <-> Chair Status Partial/Moderate Transfer/Bed Mobility Rolling Walker Recommended Devices Current Car Transfer Status Not attempted due to Current Ambulation Assistance Partial/Moderate Status Ambulation Assistive Device Rolling Walker Ambulation Conditions Two or More Turns,Uneven Surfaces Current Ambulation Distance 50', 25', 15' Current Wheelchair Propulsion Not Applicable Ability Status Current Stair Climbing Status Partial/Moderate Stair Climbing Assistive Left Railing,Right Railing Devices Number of Stairs Climbed 3 Current Curb Assistance Status Partial/Moderate Curb Assistive Devices Rolling Walker Objective Comments Pt is able to recall 1/3 Total Hip Precautions - crossing legs Occupational Therapy: Current Status Current Upper Body Dressing Supervision/Touching Status Current Lower Body Dressing Patient Refused Status Current Footwear Status Dependent Current Bathing Status Substantial/Maximal Current Grooming Status Setup or Clean-up Assist Current Toileting Status Supervision/Touching Current Toilet Transfer Status Supervision/Touching Current Eating Status Independent Goals: Physical Therapy: Goals Goals to Be Accomplished in ( 5-7 Days) Goal: Rolling Assistance Independent Goal Supine <-> Sit Status Independent Goal Sit <-> Stand Status Independent Goal Bed <-> Chair Status Independent Transfer/Bed Mobility Rolling Walker Recommended Devices Goal: Picking Up Object Independent Goal: Car Transfer Status Setup or Clean-up Assist Goal: Ambulation Assistance Independent Ambulation Assistive Devices Rolling Walker Ambulation Distance (ft) 150 Goal: Wheelchair Propulsion Not Applicable Ability Goal: Stairs Assistance Supervision/Touching Stairs Recommended Devices One Rail Number of Stairs 4 Goal: Curb Assistance Supervision/Touching Goal: Home Exercise Program Supervision/Touching Assistance Occupational Therapy: Goals Goals to be Completed in (Days 7-10 ) Goal Upper Body Dressing Setup or Clean-up Assist Routine Goal Lower Body Dressing Supervision/Touching Routine Goal Footwear Status Supervision/Touching Goal Bathing Routine (OT) Supervision/Touching Goal Grooming Routine Setup or Clean-up Assist Goal Toilet Hygiene and Supervision/Touching Clothing Management Routine Goal Toilet Transfer Routine Supervision/Touching Goal Functional Transfers for Supervision/Touching ADL Goal Feeding Routine Independent Goal Light Housekeeping Tasks Partial/Moderate Care Plan: Care Plan ADL's - Improve/Maintain Start: 06/27/19 11:58 Freq: DAILY@0700,1900 Status: Active Target: 06/28/19 Protocol: Activity Type Activity Date Activity User E-Sign Co-Sign Detail Recorded Client Recorded Date Recorded By Document 06/27/19 11:59 [id number] 06/27/19 11:59 [id number] 06/27/19 11:59 PMRU Outcome: ADL's/ADL Transfers Orders/Interventions Occupational Therapy Evaluation & Treatment Communication Tool in Patient Room Device Yes Address Deficits Secondary To: right hip hemiarthroplast y Patient to receive OT 5x/wk for 60-120 Therex min/day Self Care Management Group Therapy UE/LE ADL's with Assist Yes: supervision/ touching A ADL Transfers with Assist Yes: supervision/ touching A Toileting: Transfers,Clothing Management Yes: ,Hygeine w/Assist supervision/ touching A Light Kitchen/Laundry w/Assist Yes: partial/ modA Other Outcome/Goals Pt is a 79 year old female s/p fall with R hip fx s/p hemiarthroplast y, pt able to recall only 1/3 precautions which is consistent since acute OT eval which was completed last date. Pt with c /o pain and feeling lousy and cold throughout session, able to participate with assistance and limited due to pain and not feeling well throughout , CLOTH COVERED HELMET PULLER aware of pt's complaints , awaiting orders from MD to be entered in order for pt to receive pain meds. Pt currently with significantly limited ADL status with LE dressing and bathing due to hip precautions which pt cannot recall at this time, pt confused at times during evaluation and requires cues for safe hand placement and to maintain hip precautions which limits independence with bathing, dressing, toileting, and transfers. Pt will benefit from skilled OT intervention and will likely require supervision at d/c if confusion and difficulty with recall of hip precautions continues. Progression Toward Outcome/Goals Goal Initiation - Interdisciplinary Staff Present Housekeeper Nanny/Social Work Staff Present: Columba Costello LMSW Nursing Staff Present: Faby Del Castillo, HERMELINDO OT Staff Present: Maria Esther Alvarez PT Staff Present: Salima Alcala Rec Therapy Staff Present: Brenna Parekh Medicine Note: Length of Stay: 8 days Anticipated Discharge Destination: Home Tentative Discharge Date: July 05, 2019 Discharged to: Home
[2019-06-27] MEDS: HYDROcodone/ACETAMIN 5-325 MG* 1 TAB PO PRN ×3 (13:18→23:41)
[2019-06-27 17:07] LABS: Urine Appearance Clear; Urine Bilirubin Negative (Negative); Urine Blood Negative (Negative); Urine Color Yellow; Urine Glucose Negative (Negative); Urine Ketones Negative (Negative); Urine Nitrite Negative (Negative); Urine Protein Negative (Negative); Urine Specific Gravity 1.011 (1.010-1.030); Urine Urobilinogen Negative (Negative)
--- NOTE | 2019-06-27 18:52 | HP ---
ADMISSION HISTORY AND PHYSICAL: DATE OF ADMISSION: 06/27/19 REASON FOR ADMISSION: Right hip fracture. HISTORY OF PRESENT ILLNESS: Korin Denson is a 79-year-old female. She lives in a trailer with her grandson. On 06/23/19, the patient slipped on her kitchen floor and fell to the ground. She was unable to get up. Her grandson, Rafael was there and lifted her up on to the couch. She was unable to walk after resting for a bit and so he brought her to the hospital at [facility] in [place]. She was having severe hip pain. At the [facility], the patient had x-rays taken which showed a left hip fracture. She was transferred to [facility] and admitted to the hospital. She was seen by Dr. Mccullough, who took her to the operating room on 06/24/19 and she had a right hip hemiarthroplasty. Postoperatively, she was started on Eliquis for DVT prophylaxis. She was noted to have an elevated blood pressure. She was started on lisinopril. She was also put on p.r.n. albuterol for her COPD. The patient was noted to have postop anemia as well as an elevated white blood cell count. She did not require a transfusion. She was felt to have Physical Therapy and Occupational Therapy needs. She is now being admitted for inpatient rehab so she may return to independent living. PAST MEDICAL HISTORY: Significant for COPD, although she was taking no medicines prior to admission. She likely had hypertension as well but was not treated. She had no seen a primary care doctor in some time. PAST SURGICAL HISTORY: She has had a hysterectomy in the past as well. CURRENT MEDICATIONS: Include: 1. Eliquis for DVT prophylaxis. 2. She is on hydrocodone for pain control. 3. Lisinopril. 4. Bowel medications. ALLERGIES: Include PENICILLIN and SULFA. SOCIAL HISTORY: She is a nonsmoker, rare drinker. She lives with her grandson in a trailer. They live in [place]. REVIEW OF SYSTEMS: The patient reports no current shortness of breath or chest pain. PHYSICAL EXAMINATION VITAL SIGNS: The patient's temperature is 98.9, blood pressure is 116/73, pulse 97, respirations 18. HEENT: Extraocular movements are intact. Tongue is midline. NECK: Supple. LUNGS: Lung sounded clear to auscultation bilaterally. HEART: Heart sounds are regular. S1, S2 audible. ABDOMEN: Soft and nontender. EXTREMITIES: Her right hip has a wound which is clean and dry. Peripheral pulses are intact. NEUROLOGIC: Sensation appeared to be intact. Muscle strength is 5/5 on both upper and lower extremities, except the right lower extremity which is 3/5 secondary to pain. FUNCTIONAL EXAM: She transfers with contact guard to min assist. ASSESSMENT: Right hip fracture status post hemiarthroplasty of the same. PLAN: Our plan is to integrate her into a comprehensive therapeutic rehab program with the following goals: 1. Physical Therapy will work with the patient. They are going to work on functional transfer training, ambulation training with a walker. 2. Occasional Therapy will see the patient, work on activities of daily living including toileting and toilet transfers. 3. Eliquis for DVT prophylaxis. 4. Adequate analgesia. 5. Her bowel will be regulated. 6. Care Manager Cna will be closely involved to make sure that any services and equipment that the patient requires are in place to prior discharge. 7. Advance directives: The patient had requested DNR status and I will put DNR order in the chart. 8. We will continue lisinopril for her blood pressure for now, but we will watch her blood pressure to see if she needs it. 9. Family training as appropriate. 10. Home with appropriate services. ESTIMATED LENGTH OF STAY: Eight days. [id number]/CPS #: [id number] WILDA
[2019-06-27] MEDS: Apixaban* 2.5 MG TAB PO SCH (19:47)
[2019-06-27] MEDS: Senna TAB 8.6 mg* TAB PO PRN (19:51)
[2019-06-27] MEDS: Docusate CAP* 100 MG PO SCH (19:51)
[2019-06-28] MEDS: HYDROcodone/ACETAMIN 5-325 MG* 1 TAB PO PRN ×4 (05:00→20:43)
[2019-06-28 05:54] LABS: ABS Basophils 0.1 10^3/ul (0-0.2); ABS Eosinophils 0.3 10^3/ul (0-0.6); ABS Lymphocytes 1.3 10^3/ul (1.0-4.8); ABS Monocytes 0.8 10^3/ul (0-0.8); ABS Neutrophils 7.1 10^3/ul (1.5-7.7); Eosinophil % 3.3 %; Hematocrit 29 % (35-47); Hemoglobin 9.6 g/dL (12.0-16.0); Lymphocyte % 13.3 %; Mean Corpuscular HGB Conc 33 g/dL (31-36); Mean Corpuscular Hemoglobin 29 pg (27-31); Mean Corpuscular Volume 88 fL (80-97); Mean Platelet Volume 7.2 fL (7.4-10.4); Platelet Count 449 10^3/uL (150-450); Red Blood Count 3.29 10^6 /uL (3.70-4.87); Red Cell Distribution Width 15 % (10-15); White Blood Count 9.5 10^3/uL (3.5-10.8)
[2019-06-28 06:11] LABS: Albumin 2.8 g/dL (3.2-5.2); Albumin/Globulin Ratio 1.1 (1-3); BUN/Creatinine Ratio 18.8 (8-20); Calcium 9.2 mg/dL (8.6-10.3); EGFR African American 99.6 (>60); EGFR Non-African American 82.3 (>60); Globulin 2.6 g/dL (2-4); Potassium 4.3 mmol/L (3.5-5.0); Total Bilirubin 0.3 mg/dL (0.2-1.0); Total Protein 5.4 g/dL (6.4-8.9)
[2019-06-28] MEDS: Apixaban* 2.5 MG TAB PO SCH ×2 (08:40→19:54)
[2019-06-28] MEDS: Docusate CAP* 100 MG PO SCH ×2 (08:40→19:54)
[2019-06-28] MEDS: Lisinopril TAB* 5 MG PO SCH (08:45)
--- NOTE | 2019-06-28 18:19 | PN ---
Progress Note Date of Service: 06/28/19 Note: GAGAN HALL was visited. Therapy notes read and reviewed. She is moving fairly well but has a little difficulty with motivation. Otherwise no complaints other than right hip pain. Current Medications: Active Medications Generic Name Dose Route Start Last Admin Trade Name Freq PRN Reason Stop Dose Admin Acetaminophen 650 mg 06/27/19 11:44 Tylenol Tab* PO Q6H PRN MILD PAIN or TEMP > 100.4 Hydrocodone Bitart/Acetaminophen 1 tab 06/27/19 11:54 06/28/19 16:38 [place] 5-325 Tab* PO 1 tab Q4H PRN Administration PAIN - MODERATE Hydrocodone Bitart/Acetaminophen 2 tab 06/27/19 11:55 06/28/19 08:42 [place] 5-325 Tab* PO 2 tab Q4H PRN Administration PAIN - SEVERE Albuterol 2 puff 06/27/19 17:09 Ventolin Hfa Inhaler* INH Q6H PRN SOB/WHEEZING Apixaban 2.5 mg 06/27/19 21:00 06/28/19 08:40 Eliquis* PO 2.5 mg BID [facility] Administration Docusate Sodium 100 mg 06/27/19 21:00 06/28/19 08:40 Colace Cap* PO 100 mg BID [facility] Administration Lisinopril 2.5 mg 06/28/19 09:00 06/28/19 08:45 Prinivil Tab* PO 2.5 mg DAILY [facility] Administration Magnesium Hydroxide 30 ml 06/27/19 11:44 Milk Of Magnesia Liq* PO Q6H PRN CONSTIPATION Polyethylene Glycol/Electrolytes 17 gm 06/27/19 11:55 06/28/19 12:42 Miralax* PO 17 gm DAILY PRN Administration CONSTIPATION Senna 2 tab 06/27/19 11:44 06/27/19 19:51 Senokot 8.6 Mg Tab* PO 2 tab BEDTIME PRN Administration CONSTIPATION Vital Signs: Vital Signs Temp Pulse Resp BP Pulse Ox 97.9 F 103 20 128/71 96 06/28/19 16:38 06/28/19 16:38 06/28/19 16:38 06/28/19 16:38 06/28/19 17:31 Lab Results: Laboratory Results - last 24 hr 06/28/19 06/28/19 05:44 05:44 WBC 9.5 RBC 3.29 L Hgb 9.6 L Hct 29 L MCV 88 MCH 29 MCHC 33 RDW 15 Plt Count 449 MPV 7.2 L Neut % (Auto) 74.6 Lymph % (Auto) 13.3 [place] % (Auto) 8.0 Eos % (Auto) 3.3 Baso % (Auto) 0.8 Absolute Neuts (auto) 7.1 Absolute Lymphs (auto) 1.3 Absolute Monos (auto) 0.8 Absolute Eos (auto) 0.3 Absolute Basos (auto) 0.1 Absolute Nucleated RBC 0.0 Nucleated RBC % 0.0 Sodium 135 Potassium 4.3 Chloride 103 Carbon Dioxide 30 Anion Gap 2 BUN 13 Creatinine 0.69 Est GFR ( Amer) 99.6 Est GFR (Non-Af Amer) 82.3 BUN/Creatinine Ratio 18.8 Glucose 89 Calcium 9.2 Total Bilirubin 0.30 AST 14 ALT 7 Alkaline Phosphatase 66 Total Protein 5.4 L Albumin 2.8 L Globulin 2.6 Albumin/Globulin Ratio 1.1 Exam: GENERAL: A&O. No distress LUNGS: Clear bilaterally HEART: Regular rhythm ABDOMEN: Soft EXTREMITIES: Right hip wound C/D/I NEUROLOGIC: Sensation intact. Moves all 4 extremities with 5/5 except RLE Assessment/Plan: 1. Right Hip Fracture, S/P Hemiarthroplasty: WBAT. PT/OT. Follow up with Dr. Mccullough 2. COPD: Albuterol HFA 3, DVT Prophylaxis: Eliquis 4. HTN: Lisinopril 5. Dementia: Will have MOCA 6. Advance Directives: DNR 06/28/19 18:17
[2019-06-28] MEDS: Senna TAB 8.6 mg* TAB PO PRN (19:54)
[2019-06-29] MEDS: HYDROcodone/ACETAMIN 5-325 MG* 1 TAB PO PRN ×6 (00:47→23:57)
[2019-06-29] MEDS: Docusate CAP* 100 MG PO SCH ×2 (09:32→20:45)
[2019-06-29] MEDS: Lisinopril TAB* 5 MG PO SCH (09:32)
[2019-06-29] MEDS: Apixaban* 2.5 MG TAB PO SCH ×2 (09:37→20:44)
--- NOTE | 2019-06-29 19:26 | PN ---
Progress Note Date of Service: 06/29/19 Note: GAGAN HALL was visited. Therapy notes read and reviewed. She was doing fairly well but has difficulty remembering how to do things. Trouble using adaptive equipment. Has a cough Current Medications: Active Medications Generic Name Dose Route Start Last Admin Trade Name Freq PRN Reason Stop Dose Admin Acetaminophen 650 mg 06/27/19 11:44 Tylenol Tab* PO Q6H PRN MILD PAIN or TEMP > 100.4 Hydrocodone Bitart/Acetaminophen 1 tab 06/27/19 11:54 06/29/19 11:10 [place] 5-325 Tab* PO 1 tab Q4H PRN Administration PAIN - MODERATE Hydrocodone Bitart/Acetaminophen 2 tab 06/27/19 11:55 06/29/19 19:07 [place] 5-325 Tab* PO 2 tab Q4H PRN Administration PAIN - SEVERE Albuterol 2 puff 06/27/19 17:09 Ventolin Hfa Inhaler* INH Q6H PRN SOB/WHEEZING Apixaban 2.5 mg 06/27/19 21:00 06/29/19 09:37 Eliquis* PO 2.5 mg BID SOCRATES Administration Docusate Sodium 100 mg 06/27/19 21:00 06/29/19 09:32 Colace Cap* PO 100 mg BID SOCRATES Administration Lisinopril 2.5 mg 06/28/19 09:00 06/29/19 09:32 Prinivil Tab* PO 2.5 mg DAILY SOCRATES Administration Magnesium Hydroxide 30 ml 06/27/19 11:44 Milk Of Magnesia Liq* PO Q6H PRN CONSTIPATION Polyethylene Glycol/Electrolytes 17 gm 06/27/19 11:55 06/28/19 12:42 Miralax* PO 17 gm DAILY PRN Administration CONSTIPATION Senna 2 tab 06/27/19 11:44 06/28/19 19:54 Senokot 8.6 Mg Tab* PO 2 tab BEDTIME PRN Administration CONSTIPATION Vital Signs: Vital Signs Temp Pulse Resp BP Pulse Ox 99 F 96 18 102/69 94 06/29/19 16:00 06/29/19 16:00 06/29/19 19:07 06/29/19 16:00 06/29/19 17:30 Exam: GENERAL: A&O. No distress LUNGS: Scattered ronchi HEART: Regular rhythm ABDOMEN: Soft EXTREMITIES: Right hip wound C/D/I NEUROLOGIC: Sensation intact. Moves all 4 extremities with 5/5 except RLE Assessment/Plan: 1. Right Hip Fracture, S/P Hemiarthroplasty: WBAT. PT/OT. Follow up with Dr. Mccullough 2. COPD: Albuterol HFA 3, DVT Prophylaxis: Eliquis 4. HTN: Lisinopril 5. Dementia: MOCA 04/21 6. Advance Directives: DNR 7. Cough: Robitussin, may need CXR 06/29/19 19:26
[2019-06-29] MEDS: Senna TAB 8.6 mg* TAB PO PRN (20:44)
[2019-06-29] MEDS: guaiFENesin 100 mg/5 ml LIQ unit dose cup PO PRN (20:45)
[2019-06-30] MEDS: HYDROcodone/ACETAMIN 5-325 MG* 1 TAB PO PRN ×3 (05:37→15:47)
[2019-06-30] MEDS: Docusate CAP* 100 MG PO SCH ×2 (08:00→19:51)
[2019-06-30] MEDS: Apixaban* 2.5 MG TAB PO SCH ×2 (08:00→19:51)
[2019-06-30] MEDS: Lisinopril TAB* 5 MG PO SCH (08:00)
[2019-06-30] MEDS: guaiFENesin 100 mg/5 ml LIQ unit dose cup PO PRN ×2 (08:01→19:51)
--- NOTE | 2019-06-30 16:49 | PN ---
Progress Note Date of Service: 06/30/19 Note: GAGAN HALL was visited. Therapy notes read and reviewed. She is doing fairly well but STM is a big problem. Her cough slightly better after Robitussin Current Medications: Active Medications Generic Name Dose Route Start Last Admin Trade Name Freq PRN Reason Stop Dose Admin Acetaminophen 650 mg 06/27/19 11:44 Tylenol Tab* PO Q6H PRN MILD PAIN or TEMP > 100.4 Hydrocodone Bitart/Acetaminophen 1 tab 06/27/19 11:54 06/29/19 11:10 [place] 5-325 Tab* PO 1 tab Q4H PRN Administration PAIN - MODERATE Hydrocodone Bitart/Acetaminophen 2 tab 06/27/19 11:55 06/30/19 15:47 [place] 5-325 Tab* PO 2 tab Q4H PRN Administration PAIN - SEVERE Albuterol 2 puff 06/27/19 17:09 Ventolin Hfa Inhaler* INH Q6H PRN SOB/WHEEZING Apixaban 2.5 mg 06/27/19 21:00 06/30/19 08:00 Eliquis* PO 2.5 mg BID SOCRATES Administration Docusate Sodium 100 mg 06/27/19 21:00 06/30/19 08:00 Colace Cap* PO 100 mg BID SOCRATES Administration Guaifenesin 5 ml 06/29/19 19:30 06/30/19 08:01 Robitussin* PO 5 ml Q6H PRN Administration COUGH Lisinopril 2.5 mg 06/28/19 09:00 06/30/19 08:00 Prinivil Tab* PO 2.5 mg DAILY SOCRATES Administration Magnesium Hydroxide 30 ml 06/27/19 11:44 Milk Of Magnesia Liq* PO Q6H PRN CONSTIPATION Polyethylene Glycol/Electrolytes 17 gm 06/27/19 11:55 06/28/19 12:42 Miralax* PO 17 gm DAILY PRN Administration CONSTIPATION Senna 2 tab 06/27/19 11:44 06/29/19 20:44 Senokot 8.6 Mg Tab* PO 2 tab BEDTIME PRN Administration CONSTIPATION Vital Signs: Vital Signs Temp Pulse Resp BP Pulse Ox 98.3 F 99 22 135/72 95 06/30/19 15:58 06/30/19 15:58 06/30/19 15:58 06/30/19 15:58 06/30/19 15:58 Exam: GENERAL: A&O. No distress LUNGS: Scattered ronchi HEART: Regular rhythm ABDOMEN: Soft EXTREMITIES: Right hip wound C/D/I NEUROLOGIC: Sensation intact. Moves all 4 extremities with 5/5 except RLE Assessment/Plan: 1. Right Hip Fracture, S/P Hemiarthroplasty: WBAT. PT/OT. Follow up with Dr. Mccullough 2. COPD: Albuterol HFA 3, DVT Prophylaxis: Eliquis 4. HTN: Lisinopril 5. Dementia: MOCA 04/21 6. Advance Directives: DNR 7. Cough: Robitussin, may need CXR 06/30/19 16:49
[2019-07-01] MEDS: HYDROcodone/ACETAMIN 5-325 MG* 1 TAB PO PRN ×5 (00:03→22:32)
[2019-07-01 05:36] LABS: Hematocrit 30 % (35-47); Hemoglobin 9.8 g/dL (12.0-16.0); Mean Corpuscular HGB Conc 33 g/dL (31-36); Mean Corpuscular Hemoglobin 29 pg (27-31); Mean Corpuscular Volume 88 fL (80-97); Mean Platelet Volume 6.6 fL (7.4-10.4); Platelet Count 512 10^3/uL (150-450); Red Blood Count 3.37 10^6 /uL (3.70-4.87); Red Cell Distribution Width 15 % (10-15); White Blood Count 6.5 10^3/uL (3.5-10.8)
[2019-07-01 05:54] LABS: ABS Basophils 0.1 10^3/ul (0-0.2); ABS Eosinophils 0.2 10^3/ul (0-0.6); ABS Lymphocytes 1.3 10^3/ul (1.0-4.8); ABS Monocytes 0.6 10^3/ul (0-0.8); ABS Neutrophils 4.3 10^3/ul (1.5-7.7); Eosinophil % 3.3 %; Lymphocyte % 20.1 %
[2019-07-01] MEDS: Docusate CAP* 100 MG PO SCH ×2 (08:38→19:31)
[2019-07-01] MEDS: Apixaban* 2.5 MG TAB PO SCH ×2 (08:38→19:31)
[2019-07-01] MEDS: Lisinopril TAB* 5 MG PO SCH (08:39)
[2019-07-01] MEDS: guaiFENesin 100 mg/5 ml LIQ unit dose cup PO PRN (08:41)
--- NOTE | 2019-07-01 13:24 | PN ---
Progress Note Date of Service: 07/01/19 Note: GAGAN HALL was visited. Nursing and Therapy notes read and reviewed. She has no complaints at present. Feels sore. Current Medications: Active Medications Generic Name Dose Route Start Last Admin Trade Name Freq PRN Reason Stop Dose Admin Acetaminophen 650 mg 06/27/19 11:44 Tylenol Tab* PO Q6H PRN MILD PAIN or TEMP > 100.4 Hydrocodone Bitart/Acetaminophen 1 tab 06/27/19 11:54 07/01/19 10:04 [place] 5-325 Tab* PO 1 tab Q4H PRN Administration PAIN - MODERATE Hydrocodone Bitart/Acetaminophen 2 tab 06/27/19 11:55 07/01/19 05:34 [place] 5-325 Tab* PO 2 tab Q4H PRN Administration PAIN - SEVERE Albuterol 2 puff 06/27/19 17:09 Ventolin Hfa Inhaler* INH Q6H PRN SOB/WHEEZING Apixaban 2.5 mg 06/27/19 21:00 07/01/19 08:38 Eliquis* PO 2.5 mg BID SOCRATES Administration Docusate Sodium 100 mg 06/27/19 21:00 07/01/19 08:38 Colace Cap* PO 100 mg BID SOCRATES Administration Guaifenesin 5 ml 06/29/19 19:30 07/01/19 08:41 Robitussin* PO 5 ml Q6H PRN Administration COUGH Lisinopril 2.5 mg 06/28/19 09:00 07/01/19 08:39 Prinivil Tab* PO 2.5 mg DAILY SOCRATES Administration Magnesium Hydroxide 30 ml 06/27/19 11:44 Milk Of Magnesia Liq* PO Q6H PRN CONSTIPATION Polyethylene Glycol/Electrolytes 17 gm 06/27/19 11:55 06/28/19 12:42 Miralax* PO 17 gm DAILY PRN Administration CONSTIPATION Senna 2 tab 06/27/19 11:44 06/29/19 20:44 Senokot 8.6 Mg Tab* PO 2 tab BEDTIME PRN Administration CONSTIPATION Vital Signs: Vital Signs Temp Pulse Resp BP Pulse Ox 98.2 F 82 18 132/74 95 07/01/19 05:26 07/01/19 05:26 07/01/19 12:43 07/01/19 05:26 07/01/19 08:00 Lab Results: Laboratory Results - last 24 hr 07/01/19 05:23 WBC 6.5 RBC 3.37 L Hgb 9.8 L Hct 30 L MCV 88 MCH 29 MCHC 33 RDW 15 Plt Count 512 H D MPV 6.6 L Neut % (Auto) 66.2 Lymph % (Auto) 20.1 [place] % (Auto) 9.5 Eos % (Auto) 3.3 Baso % (Auto) 0.9 Absolute Neuts (auto) 4.3 Absolute Lymphs (auto) 1.3 Absolute Monos (auto) 0.6 Absolute Eos (auto) 0.2 Absolute Basos (auto) 0.1 Absolute Nucleated RBC 0.0 Nucleated RBC % 0.0 Exam: GENERAL: A&O. No distress LUNGS: Scattered ronchi HEART: Regular rhythm ABDOMEN: Soft EXTREMITIES: Right hip wound C/D/I NEUROLOGIC: Sensation intact. Moves all 4 extremities with 5/5 except RLE Assessment/Plan: 1. Right Hip Fracture, S/P Hemiarthroplasty: WBAT. PT/OT. Follow up with Dr. Mccullough 2. COPD: Albuterol HFA 3, DVT Prophylaxis: Eliquis 4. HTN: Lisinopril 5. Dementia: MOCA 04/21 6. Advance Directives: DNR 7. Cough: Robitussin 07/01/19 13:25
[2019-07-02] MEDS: Apixaban* 2.5 MG TAB PO SCH ×2 (08:08→19:49)
[2019-07-02] MEDS: guaiFENesin 100 mg/5 ml LIQ unit dose cup PO PRN (08:08)
[2019-07-02] MEDS: Docusate CAP* 100 MG PO SCH ×2 (08:08→19:49)
[2019-07-02] MEDS: HYDROcodone/ACETAMIN 5-325 MG* 1 TAB PO PRN ×4 (08:09→21:53)
[2019-07-02] MEDS: Lisinopril TAB* 5 MG PO SCH (08:11)
--- NOTE | 2019-07-02 13:35 | PN ---
Progress Note Date of Service: 07/02/19 Note: GAGAN HALL was visited. Nursing notes read and reviewed. I met with her two daughters. They told me that Gagan lives with her grandson but they haven't seen her in 5 years. They would prefer not to have their mom return to her grandson's house. Am not sure how involved they are Current Medications: Active Medications Generic Name Dose Route Start Last Admin Trade Name Freq PRN Reason Stop Dose Admin Acetaminophen 650 mg 06/27/19 11:44 Tylenol Tab* PO Q6H PRN MILD PAIN or TEMP > 100.4 Hydrocodone Bitart/Acetaminophen 1 tab 06/27/19 11:54 07/02/19 13:01 [place] 5-325 Tab* PO 1 tab Q4H PRN Administration PAIN - MODERATE Hydrocodone Bitart/Acetaminophen 2 tab 06/27/19 11:55 07/01/19 22:32 [place] 5-325 Tab* PO 2 tab Q4H PRN Administration PAIN - SEVERE Albuterol 2 puff 06/27/19 17:09 Ventolin Hfa Inhaler* INH Q6H PRN SOB/WHEEZING Apixaban 2.5 mg 06/27/19 21:00 07/02/19 08:08 Eliquis* PO 2.5 mg BID SOCRATES Administration Docusate Sodium 100 mg 06/27/19 21:00 07/02/19 08:08 Colace Cap* PO 100 mg BID SOCRATES Administration Guaifenesin 5 ml 06/29/19 19:30 07/02/19 08:08 Robitussin* PO 5 ml Q6H PRN Administration COUGH Lisinopril 2.5 mg 06/28/19 09:00 07/02/19 08:11 Prinivil Tab* PO 2.5 mg DAILY SOCRATES Administration Magnesium Hydroxide 30 ml 06/27/19 11:44 Milk Of Magnesia Liq* PO Q6H PRN CONSTIPATION Polyethylene Glycol/Electrolytes 17 gm 06/27/19 11:55 06/28/19 12:42 Miralax* PO 17 gm DAILY PRN Administration CONSTIPATION Senna 2 tab 06/27/19 11:44 06/29/19 20:44 Senokot 8.6 Mg Tab* PO 2 tab BEDTIME PRN Administration CONSTIPATION Vital Signs: Vital Signs Temp Pulse Resp BP Pulse Ox 97.9 F 80 18 142/77 95 07/02/19 04:39 07/02/19 04:39 07/02/19 13:01 07/02/19 04:39 07/02/19 08:00 Exam: GENERAL: A&O. No distress LUNGS: Scattered ronchi HEART: Regular rhythm ABDOMEN: Soft EXTREMITIES: Right hip wound C/D/I NEUROLOGIC: Sensation intact. Moves all 4 extremities with 5/5 except RLE Assessment/Plan: 1. Right Hip Fracture, S/P Hemiarthroplasty: WBAT. PT/OT. Follow up with Dr. Mccullough 2. COPD: Albuterol HFA 3, DVT Prophylaxis: Eliquis 4. HTN: Lisinopril 5. Dementia: MOCA 04/21 6. Advance Directives: DNR 7. Cough: Robitussin 07/02/19 13:35
[2019-07-03] MEDS: HYDROcodone/ACETAMIN 5-325 MG* 1 TAB PO PRN ×5 (01:54→23:12)
[2019-07-03] MEDS: Lisinopril TAB* 5 MG PO SCH (09:07)
[2019-07-03] MEDS: Apixaban* 2.5 MG TAB PO SCH ×2 (09:07→20:30)
[2019-07-03] MEDS: Docusate CAP* 100 MG PO SCH ×2 (09:07→20:30)
--- NOTE | 2019-07-03 13:03 | PN ---
Progress Note Date of Service: 07/03/19 Note: GAGAN HALL was visited. Nursing and therapy notes read and reviewed. Pt states she does not want to go home to grandson's but rather to [place] or her daughter's. Unclear if there is 24hr supervision available there. No chest pain, shortness of breath or abdominal pain. Current Medications: Active Medications Generic Name Dose Route Start Last Admin Trade Name Freq PRN Reason Stop Dose Admin Acetaminophen 650 mg 06/27/19 11:44 Tylenol Tab* PO Q6H PRN MILD PAIN or TEMP > 100.4 Hydrocodone Bitart/Acetaminophen 1 tab 06/27/19 11:54 07/03/19 10:09 [place] 5-325 Tab* PO 1 tab Q4H PRN Administration PAIN - MODERATE Hydrocodone Bitart/Acetaminophen 2 tab 06/27/19 11:55 07/03/19 01:54 [place] 5-325 Tab* PO 2 tab Q4H PRN Administration PAIN - SEVERE Albuterol 2 puff 06/27/19 17:09 Ventolin Hfa Inhaler* INH Q6H PRN SOB/WHEEZING Apixaban 2.5 mg 06/27/19 21:00 07/03/19 09:07 Eliquis* PO 2.5 mg BID SOCRATES Administration Docusate Sodium 100 mg 06/27/19 21:00 07/03/19 09:07 Colace Cap* PO 100 mg BID SOCRATES Administration Guaifenesin 5 ml 06/29/19 19:30 07/02/19 08:08 Robitussin* PO 5 ml Q6H PRN Administration COUGH Lisinopril 2.5 mg 06/28/19 09:00 07/03/19 09:07 Prinivil Tab* PO 2.5 mg DAILY SOCRATES Administration Magnesium Hydroxide 30 ml 06/27/19 11:44 Milk Of Magnesia Liq* PO Q6H PRN CONSTIPATION Polyethylene Glycol/Electrolytes 17 gm 06/27/19 11:55 06/28/19 12:42 Miralax* PO 17 gm DAILY PRN Administration CONSTIPATION Senna 2 tab 06/27/19 11:44 06/29/19 20:44 Senokot 8.6 Mg Tab* PO 2 tab BEDTIME PRN Administration CONSTIPATION Vital Signs: Vital Signs Temp Pulse Resp BP Pulse Ox 98.8 F 63 16 124/72 100 07/03/19 06:06 07/03/19 06:06 07/03/19 12:09 07/03/19 06:06 07/03/19 06:06 Exam: GENERAL: No distress. Alert and appropriate LUNGS: Scattered ronchi bilaterally HEART: Regular rate and rhythm ABDOMEN: Soft, + bowel sounds, non-tender, non-distended EXTREMITIES: No edema NEUROLOGIC: Motor 5/5 BLE except pain limited right hip and knee with normal sensation. Assessment/Plan: 1. Right Hip Fracture, S/P Hemiarthroplasty: WBAT. PT/OT. Follow up with Dr. Mccullough 2. COPD: Albuterol HFA 3, DVT Prophylaxis: Eliquis 4. HTN: Lisinopril 5. Dementia: MOCA 04/21 6. Advance Directives: DNR 7. Cough: Robitussin 8. Dispo: Social work involved with determining family situation and d/c location. 07/03/19 13:02
[2019-07-03] MEDS: Senna TAB 8.6 mg* TAB PO PRN (20:30)
[2019-07-04] MEDS: Apixaban* 2.5 MG TAB PO SCH ×2 (08:40→21:53)
[2019-07-04] MEDS: Lisinopril TAB* 5 MG PO SCH (08:40)
[2019-07-04] MEDS: Docusate CAP* 100 MG PO SCH ×2 (08:40→21:55)
[2019-07-04] MEDS: HYDROcodone/ACETAMIN 5-325 MG* 1 TAB PO PRN ×2 (08:41→13:17)
[2019-07-04] MEDS: guaiFENesin 100 mg/5 ml LIQ unit dose cup PO PRN ×2 (08:42→17:46)
--- NOTE | 2019-07-04 09:17 | PN ---
Progress Note Date of Service: 07/04/19 Note: GAGAN HALL was visited. Nursing and therapy notes read and reviewed. No chest pain, shortness of breath or abdominal pain. Just sore at hip. Current Medications: Active Medications Generic Name Dose Route Start Last Admin Trade Name Freq PRN Reason Stop Dose Admin Acetaminophen 650 mg 06/27/19 11:44 Tylenol Tab* PO Q6H PRN MILD PAIN or TEMP > 100.4 Hydrocodone Bitart/Acetaminophen 1 tab 06/27/19 11:54 07/03/19 17:01 [place] 5-325 Tab* PO 1 tab Q4H PRN Administration PAIN - MODERATE Hydrocodone Bitart/Acetaminophen 2 tab 06/27/19 11:55 07/04/19 08:41 [place] 5-325 Tab* PO 2 tab Q4H PRN Administration PAIN - SEVERE Albuterol 2 puff 06/27/19 17:09 Ventolin Hfa Inhaler* INH Q6H PRN SOB/WHEEZING Apixaban 2.5 mg 06/27/19 21:00 07/04/19 08:40 Eliquis* PO 2.5 mg BID SOCRATES Administration Docusate Sodium 100 mg 06/27/19 21:00 07/04/19 08:40 Colace Cap* PO 100 mg BID SOCRATES Administration Guaifenesin 5 ml 06/29/19 19:30 07/04/19 08:42 Robitussin* PO 5 ml Q6H PRN Administration COUGH Lisinopril 2.5 mg 06/28/19 09:00 07/04/19 08:40 Prinivil Tab* PO 2.5 mg DAILY SOCRATES Administration Magnesium Hydroxide 30 ml 06/27/19 11:44 Milk Of Magnesia Liq* PO Q6H PRN CONSTIPATION Polyethylene Glycol/Electrolytes 17 gm 06/27/19 11:55 06/28/19 12:42 Miralax* PO 17 gm DAILY PRN Administration CONSTIPATION Senna 2 tab 06/27/19 11:44 07/03/19 20:30 Senokot 8.6 Mg Tab* PO 2 tab BEDTIME PRN Administration CONSTIPATION Vital Signs: Vital Signs Temp Pulse Resp BP Pulse Ox 98.0 F 80 16 144/79 96 07/04/19 06:24 07/04/19 06:24 07/04/19 08:41 07/04/19 06:24 07/04/19 06:24 Exam: GENERAL: No distress. Alert and appropriate LUNGS: Scattered ronchi bilaterally HEART: Regular rate and rhythm ABDOMEN: Soft, + bowel sounds, non-tender, non-distended EXTREMITIES: No edema NEUROLOGIC: Motor 5/5 BLE except pain limited right hip and knee with normal sensation. Assessment/Plan: 1. Right Hip Fracture, S/P Hemiarthroplasty: WBAT. PT/OT. Follow up with Dr. Mccullough 2. COPD: Albuterol HFA 3, DVT Prophylaxis: Eliquis 4. HTN: Lisinopril 5. Dementia: MOCA 04/21 6. Advance Directives: DNR 7. Cough: Robitussin 8. Dispo: Social work involved with determining family situation and d/c location. 07/04/19 09:17
--- NOTE | 2019-07-04 12:46 | PMRUTEAM ---
PMRU: Team Meeting Current Status: Physical Therapy: Current Status Current Rolling Status Supervision/Touching Current Supine <-> Sit Status Supervision/Touching Current Sit <-> Stand Status Supervision/Touching Current Bed <-> Chair Status Supervision/Touching Transfer/Bed Mobility None Recommended Devices Current Picking Up Object Supervision/Touching Status Current Car Transfer Status Not attempted due to Current Ambulation Assistance Supervision/Touching Status Ambulation Assistive Device None Ambulation Conditions Two or More Turns,Uneven Surfaces Current Ambulation Distance 2x150' Current Wheelchair Propulsion Not Applicable Ability Status Current Stair Climbing Status Supervision/Touching Stair Climbing Assistive Left Railing,Right Railing Devices Number of Stairs Climbed 2x5 Current Curb Assistance Status Supervision/Touching Curb Assistive Devices None Objective Comments Picking up object with use of bar tender: supervision , cues for safety with RLE hip precautions 2x5 steps with bilateral rails, step over step - supervision Occupational Therapy: Current Status Current Upper Body Dressing Setup or Clean-up Assist Status Current Lower Body Dressing Partial/Moderate Status Lower Body Dressing Progress cues/assist for use of AE, max v/c's to maintain hip precautions Current Footwear Status Dependent Current Bathing Status Partial/Moderate Bathing Progress assist to wash lower legs/feet Current Grooming Status Supervision/Touching Current Toileting Status Supervision/Touching Current Toilet Transfer Status Supervision/Touching Current Eating Status Independent Nursing: Current Status Skin Deviations [Forehead] Abrasion Skin Deviations [Buttocks] Other Skin Deviations [Upper Back] Other Skin Deviations [Right Hip] Incision Skin Deviation Description [ scab Forehead] Skin Deviation Description [ intact, no skinbreakdown noted Buttocks] Skin Deviation Description [ no skin breakdown noted Upper Back] Skin Deviation Description [ Open to air Right Hip] Bladder Current Status supervision Bowel Current Status supervision Nutrition Current Status eats 100% of meal Medication Current Status continues to take percocet, pt continue needs for medication reinforcement Rec Therapy: Current Status Summary of Assessment and Recreation Therapy assessment complete and pt. is Clinical Impression aware of services. Pt. has been interactive and engaged in leisure visits and pet therapy. Treatment Goals Pt. will engage in leisure activities while on the unit. Treatment Plan Provide recreation therapy services and encourage involvement. Nutrition: Current Status Monitoring pt appears to be feisty and somewhat particular re : meals (eg: doesn't like anyone "bothering" her during meals to offer her items or give her med or ask her to walk). She and family member confirm that pt has always been thin, so no reported wt loss or lack of appetite. Pt denies difficulty chewing or swallowing. Skin is intact. Weekly labs anticipated 07/05, but thus far unremarkable. Pt made aware of alternate items that are available if she needs them or if she does not care for the two entrees offered at [facility]. Note plan for d/c to the [facility]. She appears to be eating adequately, appears older than her actual age, but does not exhibit any s/sx wasting/ malnutrition. Will stay involved as needed. Goals: Physical Therapy: Goals Goals to Be Accomplished in ( 5-7 Days) Goal: Rolling Assistance Independent Goal Supine <-> Sit Status Independent Goal Sit <-> Stand Status Supervision Goal Bed <-> Chair Status Independent Transfer/Bed Mobility None Recommended Devices Goal: Picking Up Object Supervision Goal: Car Transfer Status Supervision Goal: Ambulation Assistance Supervision Ambulation Assistive Devices None Ambulation Distance (ft) 150 Goal: Wheelchair Propulsion Not Applicable Ability Goal: Stairs Assistance Supervision/Touching Stairs Recommended Devices Two Rails Number of Stairs 2x5 Goal: Curb Assistance Supervision/Touching Goal: Home Exercise Program Supervision/Touching Assistance Occupational Therapy: Goals Goals to be Completed in (Days 7-10 ) Goal Upper Body Dressing Setup or Clean-up Assist Routine Goal Lower Body Dressing Partial/Moderate Routine Goal Footwear Status Substantial/Maximal Goal Bathing Routine (OT) Partial/Moderate Goal Grooming Routine Setup or Clean-up Assist Goal Toilet Hygiene and Supervision/Touching Clothing Management Routine Goal Toilet Transfer Routine Supervision/Touching Goal Functional Transfers for Supervision/Touching ADL Goal Feeding Routine Independent Goal Light Housekeeping Tasks Partial/Moderate Nutrition: Goals Intervention Goals 1. adequate intake to support stable wt, hydration, and lean body mass 2. maintain serum electrolytes WNL 3. regulation of bowel pattern; no c/o constipation (or diarrhea) Nursing: Goals Bladder Goal independent Bowel Goal independent Nutrition Goal eats 100% of meal Medication Goal supervision Care Plan: Care Plan ADL's - Improve/Maintain Start: 06/27/19 11:58 Freq: DAILY@0700,1900 Status: Active Target: 06/28/19 Protocol: Activity Type Activity Date Activity User E-Sign Co-Sign Detail Recorded Client Recorded Date Recorded By Document 07/04/19 10:32 [id number] 07/04/19 10:32 [id number] 07/04/19 10:32 PMRU Outcome: ADL's/ADL Transfers Orders/Interventions Occupational Therapy Evaluation & Treatment Communication Tool in Patient Room Device Yes Address Deficits Secondary To: right hip hemiarthroplast y Patient to receive OT 5x/wk for 60-120 Therex min/day Self Care Management Group Therapy UE/LE ADL's with Assist Yes: supervision/ touching A ADL Transfers with Assist Yes: supervision/ touching A Toileting: Transfers,Clothing Management Yes: ,Hygeine w/Assist supervision/ touching A Light Kitchen/Laundry w/Assist Yes: partial/ modA Progression Toward Outcome/Goals Not Progressing Lack of Progression Comment Pt participated fair in treatment session, c/o pain throughout at Right hip incision, RN notified. Pt educated each session on use of AE, continues to require reminders on how to use and assistance when using in order to maintain precautions. Communication-Improve/Maintain Start: 06/27/19 12:29 Freq: DAILY@00,1900 Status: Complete Target: 07/04/19 Protocol: Activity Type Activity Date Activity User E-Sign Co-Sign Detail Recorded Client Recorded Date Recorded By Document 07/02/19 07:00 [id number] [id number] 07/02/19 07:13 [id number] 07/02/19 07:00 PMRU Outcome: Communication/Cognitive Status Current Communication Outcome/Goals Use Comm Tools/ Devices Makes Needs Known Effectively Progression Toward Outcomes/Goals Goals Met Outcome/Goals Met Makes Needs Known Effectively DVT Prophylaxis- Improve/Maintain Start: 06/27/19 12:29 Freq: DAILY@00,1900 Status: Active Target: 07/07/19 Protocol: Activity Type Activity Date Activity User E-Sign Co-Sign Detail Recorded Client Recorded Date Recorded By Document 07/04/19 07:00 [id number] 07/04/19 08:59 [id number] 07/04/19 07:00 PMRU Outcome: DVT Prophylaxis Current DVT Outcome/Goals Remains Free of DVT Complies with DVT Prophylaxis /Treatment Demonstrates Knowledge of DVT Prevention/ Treatment TEDS Stockings on Every AM, Off at HS Progression Toward Outcome/Goals Progressing Discharge Planning - Improve/Maintain Start: 06/27/19 12:29 Freq: DAILY@0700,1900 Status: Active Target: 07/06/19 Protocol: Activity Type Activity Date Activity User E-Sign Co-Sign Detail Recorded Client Recorded Date Recorded By Document 07/04/19 07:00 [id number] 07/04/19 08:59 [id number] 07/04/19 07:00 PMRU Outcome: Discharge Planning Update Patient Family No: family not present Current Discharge Planning Outcome/Goals Demonstrates Understanding of Discharge Plan Homecare Referral - See Comment Progression Toward Outcome/Goals Progressing Education-Improve/Maintain Start: 06/27/19 12:29 Freq: DAILY@0700,1900 Status: Active Target: 07/07/19 Protocol: Activity Type Activity Date Activity User E-Sign Co-Sign Detail Recorded Client Recorded Date Recorded By Document 07/04/19 07:00 [id number] [id number] 07/04/19 08:59 [id number] 07/04/19 07:00 PMRU Outcome: Education Current Education Outcome/Goals Demonstrate/ Verbalize Understanding of Written Discharge Instructions Demonstrates Skills Encourage Questions Progression Toward Outcome/Goals Progressing /GI-Improve/Maintain Start: 06/27/19 12:29 Freq: DAILY@0700,1900 Status: Active Target: 07/07/19 Protocol: Activity Type Activity Date Activity User E-Sign Co-Sign Detail Recorded Client Recorded Date Recorded By Document 07/04/19 07:00 [id number] 07/04/19 08:59 [id number] 07/04/19 07:00 PMRU Outcome: Genitourinary/ Gastrointestinal Current Gastrointestinal Outcome/Goals Maintain/ Achieve Bowel Regularity in Accordance with Pt's Baseline Prevent Constipation Laxatives as Ordered Progression Toward Outcome/Goals Progressing Current Genitourinary Outcome/Goals Maintain/ Achieve Urinary Continence Maintain/ Achieve Adequate Urinary Output Remain Free of Hospital- Acquired UTI Progression Toward Outcome/Goals Progressing Medication Administration Start: 06/27/19 12:29 Freq: DAILY@699,1899 Status: Active Target: 07/07/19 Protocol: Activity Type Activity Date Activity User E-Sign Co-Sign Detail Recorded Client Recorded Date Recorded By Document 07/04/19 07:00 [id number] 07/04/19 08:59 [id number] 07/04/19 07:00 PMRU Outcome: Medication Administration Assess Patient Knowledge/Teach Med Yes Education for all Meds Current Trimming Department Blocker Outcome/Goals Family/ Caregiver Administer Medications at Home Demonstrates Understanding Progression Towards Outcome/Goals Progressing Is Patient Going Home on Lovenox? No Mobility- Improve/Maintain Start: 06/28/19 23:47 Freq: DAILY@0700,1900 Status: Active Target: 07/05/19 Protocol: Activity Type Activity Date Activity User E-Sign Co-Sign Detail Recorded Client Recorded Date Recorded By Document 07/04/19 11:48 [id number] 07/04/19 11:48 [id number] 07/04/19 11:48 PMRU Outcome: Mobility Physical Therapy Evaluation and Yes Treatment Activity OOB with Assistance Yes WBAT Yes NWB No TTWB No Device Yes Assistance Yes Patient to be seen 5x/wk for 60-120 min/ Therex day for: Mobility Training Gait Training Balance Other Other Therapy Comment Family training , discharge planning Current Mobility Outcome/Goals Improve Mobility Status Other Mobility Outcome/Goals Pt continues to require VCs for maintenance of RLE total hip precautions , however, improving with functional endurance and dynamic standing balance with and without UE support. Pt demonstrates improvements with safety and B hand placement during transfers without use of AD. Pt now completing transfers and ambulation wihtout AD at supervision level, and is making good progress toward LTGS. Pt will continue to benefit from continued skilled PT to increase independence, reduce fall risk and promote safe DC home. Progression Toward Outcome/Goals Progressing Bed Mobility Yes: independent Transfers Yes: supervision with RW Gait x ft Yes: 150' supervision with RW W/C Mobility x ft No Up/Down Stairs Yes: 4 with 1 rail supervision With HEP Yes: supervision Goal Comment Goals set at supervision level due to having R total hip precautions and baseline dementia. Pain/Comfort- Improve/Maintain Start: 06/27/19 12:29 Freq: DAILY@0700,1900 Status: Active Target: 07/07/19 Protocol: Activity Type Activity Date Activity User E-Sign Co-Sign Detail Recorded Client Recorded Date Recorded By Document 07/04/19 07:00 [id number] 07/04/19 08:59 [id number] 07/04/19 07:00 PMRU Outcome: Pain/Comfort Current Pain/Comfort Outcome/Goals Demonstrates Knowledge and Use of Available Comfort Measures Achieves Acceptable Comfort/Pain Level as Determined by Patient/Condit Maintain Comfort Level Allowing Patient to Fully Participate in Rehab Progression Toward Outcome/Goals Progressing Rec Therapy- Improve/Maintain Start: 06/27/19 16:44 Freq: DAILY@0700,1900 Status: Active Target: 06/30/19 Protocol: Activity Type Activity Date Activity User E-Sign Co-Sign Detail Recorded Client Recorded Date Recorded By Document 06/29/19 15:31 [id number] 06/29/19 15:32 [id number] 06/29/19 15:31 PMRU Outcome: Recreation Therapy Current Rec Ther Outcome/Goals Complete Rec Therapy Assessment Meet with Patient Regularly for Support Encourage Leisure Involvement Progression Toward Outcome/Goals Progressing Lack of Progression Comment pt. has been engaged in leisure and pet visits. Outcome/Goals Met Complete Rec Therapy Assessment Safety- Improve/Maintain Start: 06/27/19 10:14 Freq: DAILY@0700,1900 Status: Active Target: 07/07/19 Protocol: Activity Type Activity Date Activity User E-Sign Co-Sign Detail Recorded Client Recorded Date Recorded By Document 07/04/19 07:00 [id number] 07/04/19 08:59 [id number] 07/04/19 07:00 PMRU Outcome: Safety Current Safety Outcome/Goals Remain Free of Injury or Harm Cooperates with Safety Measures for Least Restrictive Environment Prevent Falls/ Injury Progression Toward Outcome/Goals Progressing Skin- Improve/Maintain Start: 06/27/19 12:29 Freq: DAILY@0700,1900 Status: Active Target: 07/07/19 Protocol: Activity Type Activity Date Activity User E-Sign Co-Sign Detail Recorded Client Recorded Date Recorded By Document 07/04/19 07:00 [id number] 07/04/19 08:59 [id number] 07/04/19 07:00 PMRU Outcome: Skin Skin Risk Level No Risk Current Skin Outcome/Goals Maintain/ Improve Skin Integrity Free from Pressure Injury Surgical Incisions Healing Progression Toward Outcome/Goals Progressing - Interdisciplinary Staff Present Hearing Aid Repairer/Social Work Staff Present: Columba Costello Nursing Staff Present: Yoana Jackson OT Staff Present: Maria Esther Alvarez PT Staff Present: Salima Alcala Rec Therapy Staff Present: Brenna Parekh Medicine Note: Length of Stay: [1 day] Anticipated Discharge Destination: [facility] Tentative Discharge Date: [07/05/19] Discharged to: [[facility]]
[2019-07-04] MEDS: Albuterol HFA INHALER* 8 gm MDI INH PRN (13:25)
[2019-07-04] MEDS: Acetaminophen TAB* 325 MG PO PRN (17:47)
[2019-07-05 04:39] VITALS: BP 136/74
[2019-07-05 05:37] LABS: ABS Eosinophils 0.1 10^3/ul (0-0.6); ABS Lymphocytes 1.2 10^3/ul (1.0-4.8); ABS Monocytes 0.4 10^3/ul (0-0.8); ABS Neutrophils 4.4 10^3/ul (1.5-7.7); Eosinophil % 2.1 %; Hematocrit 31 % (35-47); Hemoglobin 10.4 g/dL (12.0-16.0); Lymphocyte % 19.5 %; Mean Corpuscular HGB Conc 34 g/dL (31-36); Mean Corpuscular Hemoglobin 29 pg (27-31); Mean Corpuscular Volume 88 fL (80-97); Mean Platelet Volume 6.3 fL (7.4-10.4); Platelet Count 538 10^3/uL (150-450); Red Blood Count 3.55 10^6 /uL (3.70-4.87); Red Cell Distribution Width 15 % (10-15); White Blood Count 6.2 10^3/uL (3.5-10.8)
[2019-07-05 05:55] LABS: Albumin 3.3 g/dL (3.2-5.2); Albumin/Globulin Ratio 1.1 (1-3); BUN/Creatinine Ratio 21.6 (8-20); Calcium 9.4 mg/dL (8.6-10.3); EGFR African American 75.2 (>60); EGFR Non-African American 62.1 (>60); Globulin 3.1 g/dL (2-4); Potassium 4.6 mmol/L (3.5-5.0); Total Bilirubin 0.3 mg/dL (0.2-1.0); Total Protein 6.4 g/dL (6.4-8.9)
[2019-07-05] MEDS: Apixaban* 2.5 MG TAB PO SCH (09:05)
[2019-07-05] MEDS: Lisinopril TAB* 5 MG PO SCH (09:05)
[2019-07-05] MEDS: Albuterol HFA INHALER* 8 gm MDI INH PRN (09:06)
[2019-07-05] MEDS: guaiFENesin 100 mg/5 ml LIQ unit dose cup PO PRN (09:06)
[2019-07-05] MEDS: HYDROcodone/ACETAMIN 5-325 MG* 1 TAB PO PRN (09:07)
--- NOTE | 2019-07-05 09:07 | PN ---
Progress Note Date of Service: 07/05/19 Note: GAGAN HALL was visited. Nursing and therapy notes read and reviewed. Ready for d/c today to [facility]. No chest pain, shortness of breath or abdominal pain. Current Medications: Active Medications Generic Name Dose Route Start Last Admin Trade Name Freq PRN Reason Stop Dose Admin Acetaminophen 650 mg 06/27/19 11:44 07/04/19 17:47 Tylenol Tab* PO 650 mg Q6H PRN Administration MILD PAIN or TEMP > 100.4 Hydrocodone Bitart/Acetaminophen 1 tab 06/27/19 11:54 07/03/19 17:01 [place] 5-325 Tab* PO 1 tab Q4H PRN Administration PAIN - MODERATE Hydrocodone Bitart/Acetaminophen 2 tab 06/27/19 11:55 07/04/19 13:17 [place] 5-325 Tab* PO 2 tab Q4H PRN Administration PAIN - SEVERE Albuterol 2 puff 06/27/19 17:09 07/04/19 13:25 Ventolin Hfa Inhaler* INH 2 puff Q6H PRN Administration SOB/WHEEZING Apixaban 2.5 mg 06/27/19 21:00 07/04/19 21:53 Eliquis* PO 2.5 mg BID SOCRATES Administration Docusate Sodium 100 mg 06/27/19 21:00 07/04/19 21:55 Colace Cap* PO 100 mg BID SOCRATES Administration Guaifenesin 5 ml 06/29/19 19:30 07/04/19 17:46 Robitussin* PO 5 ml Q6H PRN Administration COUGH Lisinopril 2.5 mg 06/28/19 09:00 07/04/19 08:40 Prinivil Tab* PO 2.5 mg DAILY SOCRATES Administration Magnesium Hydroxide 30 ml 06/27/19 11:44 Milk Of Magnesia Liq* PO Q6H PRN CONSTIPATION Polyethylene Glycol/Electrolytes 17 gm 06/27/19 11:55 06/28/19 12:42 Miralax* PO 17 gm DAILY PRN Administration CONSTIPATION Senna 2 tab 06/27/19 11:44 07/03/19 20:30 Senokot 8.6 Mg Tab* PO 2 tab BEDTIME PRN Administration CONSTIPATION Vital Signs: Vital Signs Temp Pulse Resp BP Pulse Ox 98.2 F 86 14 136/74 98 07/05/19 04:36 07/05/19 04:36 07/05/19 04:36 07/05/19 04:36 07/05/19 04:36 Lab Results: Laboratory Results - last 24 hr 07/05/19 07/05/19 05:25 05:25 WBC 6.2 RBC 3.55 L Hgb 10.4 L Hct 31 L MCV 88 MCH 29 MCHC 34 RDW 15 Plt Count 538 H MPV 6.3 L Neut % (Auto) 70.6 Lymph % (Auto) 19.5 [place] % (Auto) 7.1 Eos % (Auto) 2.1 Baso % (Auto) 0.7 Absolute Neuts (auto) 4.4 Absolute Lymphs (auto) 1.2 Absolute Monos (auto) 0.4 Absolute Eos (auto) 0.1 Absolute Basos (auto) 0.0 Absolute Nucleated RBC 0.0 Nucleated RBC % 0.0 Sodium 138 Potassium 4.6 Chloride 105 Carbon Dioxide 30 Anion Gap 3 BUN 19 Creatinine 0.88 Est GFR ( Amer) 75.2 Est GFR (Non-Af Amer) 62.1 BUN/Creatinine Ratio 21.6 H Glucose 86 Calcium 9.4 Total Bilirubin 0.30 AST 13 ALT 8 Alkaline Phosphatase 69 Total Protein 6.4 Albumin 3.3 Globulin 3.1 Albumin/Globulin Ratio 1.1 Exam: GENERAL: No distress. Alert and appropriate LUNGS: clear to auscultation bilaterally HEART: Regular rate and rhythm ABDOMEN: Soft, + bowel sounds, non-tender, non-distended EXTREMITIES: No edema NEUROLOGIC: Motor 5/5 BLE except pain limited right hip and knee with normal sensation. SKIN: incsion intact. PROCEDURE: Rey removed and steristrips placed. No complications. Assessment/Plan: 1. Right Hip Fracture, S/P Hemiarthroplasty: WBAT. [place] removed 07/05/19. Follow up with Dr. Mccullough 2. COPD: Albuterol HFA 3, DVT Prophylaxis: Eliquis 4. HTN: Lisinopril 5. Dementia: MOCA 04/21 6. Advance Directives: DNR 7. Cough: Robitussin prn 8. Dispo: D/c today to assisted living. 07/05/19 09:06
[2019-07-05] MEDS: Docusate CAP* 100 MG PO SCH (09:13)
--- NOTE | 2019-07-05 10:27 | DS ---
CC: Dr. Deal, [facility]; Dr. Mccullough * DATE OF ADMISSION: 06/27/2019. DATE OF DISCHARGE: 07/05/2019. REASON FOR ADMISSION: Right hip fracture. PRIMARY CARE PHYSICIAN: Dr. Deal at [facility]. ORTHOPEDIC SURGEON: Dr. Mccullough. HISTORY OF PRESENT ILLNESS: For full details of her acute hospitalization leading up to her admission, please see the note dictated by Dr. Lim on 12/2018. Briefly, she sustained a right hip fracture and was taken to the operating room on 06/24/[address] Mccullough for a right hip hemiarthroplasty. She was started on Eliquis for DVT prophylaxis for 30 days, Lisinopril for hypertension, and Albuterol as needed for COPD. REHABILITATION COURSE: During her time on the [facility], she has remained medically stable. She has had a cough and has used Robitussin on an as needed basis with good relief. Her pain has been controlled using acetaminophen and [place] on an as needed basis. Her bowels have been regulated using Colace, Senna, and as needed MiraLax. She has been noted to have dementia and scored 8 out of 30 on the MOCA. She participated well with physical therapy and at the time of discharge should have supervision for bed mobility, transfers with or without an assistive device, and ambulating 150 feet or more with or without an assistive device. She has a rolling walker. She can also climb stairs with rails with supervision. She has a printed home exercise program which she was given a copy of. She has had difficulty remembering consistently all three of her hip precautions which is a primary reason why she needs supervision at discharge. She also participated well with occupational therapy during her stay. She is independent eating. She requires a minimum amount of assistance for bathing, especially for her lower legs and feet so that she can maintain her precautions. She needs cues for tub transfers. For dressing her upper body , she requires supervision and set up. For lower body dressing, she requires moderate to maximum assistance. For foot wear, she requires moderate to maximum assistance using adaptive equipment. She needs supervision and guidance also with using adaptive equipment. She can toilet with supervision. She needs assistance for home management and cooking. Once again, she has difficulty consistently remembering and demonstrating ability to maintain her hip precautions. Although she had been living with a grandson prior to admission, her daughters have become involved with her care and the decision was made for her to go to [facility] at discharge for assisted living where she could get 24 hour supervision and assistance as needed. The patient agreed to this plan as well. On 07/05/2019, her franky were removed and Steri-Strips were placed. DISCHARGE MEDICATIONS: 1. Acetaminophen 650 mg q.6 hours prn mild pain. 2. Albuterol meter dose inhaler two puffs q.6 hours prn shortness of breath or wheezing. 3. Eliquis 2.5 mg b.i.d. until gone to prevent DVT. 4. Colace 100 mg b.i.d. 5. Guaifenesin 5 ml q.6 hours prn cough. 6. [place] 5/325 one to two tablets q.4 hours prn moderate pain, maximum daily dose of 7, wean off as tolerated. 7. Lisinopril 2.5 mg daily. 8. MiraLax 17 gm daily prn constipation. 9. Senna two tablets at bedtime prn constipation. CONDITION ON DISCHARGE: Fair. DISCHARGE DISPOSITION: [facility]. FOLLOW-UP: 1. She is to follow-up with her primary care provider, Dr. Deal, at [facility] in one to two weeks. 2. Follow-up with Dr. Mccullough within one to two weeks. DISCHARGE DIAGNOSES: 1. Right hip fracture, status post hemiarthroplasty. 2. COPD. 3. Hypertension. 4. Dementia. [id number]/[facility] #: [id number] WILDA
[2019-07-05] MEDS: Acetaminophen TAB* 325 MG PO PRN (11:45)
== END 2019-07-05 16:00 | disposition home or self-care (01) | DRG 561 ==
LOC: PMRU 10:04
PROVIDERS: ADMIT Physical Medicine & Rehabilitation; ATTEND Physical Medicine & Rehabilitation
PROC: F07Z5ZZ Bed Mobility Treatment (ICD-10-PCS; principal; 2019-06-27)
PROC: F07Z9ZZ Gait Training/Functional Ambulation Treatment (ICD-10-PCS; 2019-06-27)
PROC: F07Z8ZZ Transfer Training Treatment (ICD-10-PCS; 2019-06-27)
PROC: F07Z4ZZ Wheelchair Mobility Treatment (ICD-10-PCS; 2019-06-27)
PROC: F08Z0ZZ Bathing/Showering Techniques Treatment (ICD-10-PCS; 2019-06-27)
PROC: F08Z1ZZ Dressing Techniques Treatment (ICD-10-PCS; 2019-06-27)
PROC: F08Z3ZZ Feeding/Eating Treatment (ICD-10-PCS; 2019-06-27)
PROC: F08Z2ZZ Grooming/Personal Hygiene Treatment (ICD-10-PCS; 2019-06-27)
DX: Z47.1 Aftercare following joint replacement surgery (principal); Z96.641 Presence of right artificial hip joint; I10 Essential (primary) hypertension; J44.9 Chronic obstructive pulmonary disease, unspecified; F03.90 Unspecified dementia, unspecified severity, without behavioral disturbance, psychotic disturbance, mood disturbance, and anxiety; R05 Cough; Z66 Do not resuscitate; S72.91XD Unspecified fracture of right femur, subsequent encounter for closed fracture with routine healing; W18.30XD Fall on same level, unspecified, subsequent encounter; Z79.899 Other long term (current) drug therapy; Z88.0 Allergy status to penicillin; Z88.2 Allergy status to sulfonamides
CPT/HCPCS: 36415; 80053; 81003; 85025; A9270-GY